=== PATIENT | female | born 1965 | race Caucasian/White ===

== ENCOUNTER 2016-10-04 17:50 | Emergency (ER) | payer MEDICARE ==
[~2016-10-04] VITALS: Ht 170.2 cm; Wt 131.5 kg
[~2016-10-04 17:50] MED LIST: ACET500T68 PO; AMLO2.5T PO; AMLO5TAB4 PO; ASEN10TA9 SL; ASPI-482 PO; Aspirin PO; BRINTELLIX; CIPR250T30 PO; CLON0.5T PO; CLON0.5T3 PO; CLOP75TA27 PO; CYCL10TA2 PO; DICY20TA30 PO; FENT1PAT15 TD; GABA600T PO; HYDR-2666 PO; HYDR-2680 PO; HYDR-2762 PO; HYDR-965 PO; HYDR-971 PO; ISOS30TA4 PO; LAMO200T3 PO; METO25TA2 PO; MONT10TA6 PO; OMEP20CA9 PO; OMEP40CA5 PO; ONDA4TAB10 SL; ROPI1TAB PO; SIMV10TA PO; SIMV40TA3 PO; VENL150C PO; ZOLP5TAB PO
[2016-10-04 18:05] VITALS: BP 143/75
--- NOTE | 2016-10-05 01:51 | ED.ADGEN ---
Past Medical History Past Medical History: Anemia, Anxiety, Bipolar, CAD, Depression, Fibromyalgia, GERD, Heart Disease, [place], Pancreatitis, Renal Failure, UTI, Other Additional Past Medical Histor: obesity, seasonal allergies, drug seeking behavior, neuropathy, ulcer Past Surgical History: Cholecystectomy, Hysterectomy, Tubal ligation, Other Additional Past Surgical Histo: L knee surgery, cardiac stent Alcohol Use: None Drug Use: None Adult General Chief Complaint Chief Complaint: HAND PROBLEM HPI HPI Patient is a 51 year old woman, history of CAD, hypertension, hyperlipidemia, obesity, anxiety, fibromyalgia, who presents to the emergency department with complaint of intermittent swelling of her right hand and wrist over the past 3 days. Patient states that she has noted swelling in the hand and wrist when waking from sleep over the past several days. She denies any injuries, denies any pain, any weakness numbness or tingling. Denies any change in activity, she is right-handed and is on disability due to her fiber myalgia. Patient has not taken any medications prior to coming to the ED. At this time the swelling is fully resolved. She states it was swollen several hours prior to coming to the ED. Patient also complained of chest pain upon initial arrival to the ED, stating that had occurred en route to the ED, but denies chest pain to me at this time. Review of Systems Review of Systems Constitutional: Denies fever or chills. [] Eyes: Denies change in visual acuity. [] HENT: Denies nasal congestion or sore throat. [] Respiratory: Denies cough or shortness of breath. [] Cardiovascular: Denies chest pain or edema. [] GI: Denies abdominal pain, nausea, vomiting, bloody stools or diarrhea. [] : Denies dysuria. [] Musculoskeletal: Denies back pain, complaining of pain in the right hand and wrist. Integument: Denies rash. [] Neurologic: Denies headache, focal weakness or sensory changes. [] Endocrine: Denies polyuria or polydipsia. [] Lymphatic: Denies swollen glands. [] Psychiatric: Denies depression or anxiety. [] Allergies Allergies Allergies Coded Allergies Type Severity Reaction Last Updated Verified clavulanic acid Allergy Intermediate Nausea 07/17/15 Yes duloxetine Allergy Intermediate Nausea and Vomiting 07/17/15 Yes varenicline Allergy Intermediate 07/17/15 Yes amoxicillin Adverse Reaction Intermediate Nausea 07/17/15 Yes Physical Exam Physical Exam Constitutional: Well developed, well nourished, no acute distress, non-toxic appearance. [] HENT: Normocephalic, atraumatic, bilateral external ears normal, oropharynx moist, no oral exudates, nose normal. [] Eyes: PERRLA, EOMI, conjunctiva normal, no discharge. [] Neck: Normal range of motion, no tenderness, supple, no stridor. [] Cardiovascular:Heart rate regular rhythm, no murmur, S1, S2, rubs or gallops. [] Lungs & Thorax: Bilateral breath sounds clear to auscultation, no wheezing, rhonchi, rales. No chest tenderness or crepitus. [] Abdomen: Bowel sounds normal, soft, no tenderness, no rebound, rigidity or guarding, no masses, no pulsatile masses. [] Skin: Warm, dry, no erythema, no rash. [] Back: No tenderness, no CVA tenderness. [] Extremities: No tenderness, no cyanosis, no clubbing, ROM intact, no edema. Negative Phalen's and Tinel's, patient with fine motor control in all cardinal hand motions intact. No evidence of swelling, trauma or other abnormalities identified and examination of the hands, hands are also equal bilaterally. Neurologic: Alert and oriented X 3, normal motor function, normal sensory function, no focal deficits noted. [] Psychologic: Affect normal, judgement normal, mood normal. [] Current Patient Data Vital Signs Vital Signs Date Time Temp Pulse Resp B/P Pulse Ox O2 Delivery O2 Flow Rate FiO2 10/04/16 18:05 98.3 72 20 143/75 96 Room Air 98.3 EKG EKG EC: Sinus rhythm, heart rate 93 beats minute, upright axis, QTC of 435, RI 188, QRS 96, no ST elevations or depressions, mild baseline artifact noted, no significant ST abnormalities identified. As interpreted by me. [] Radiology/Procedures Radiology/Procedures Not indicated. [] Course & Med Decision Making Course & Med Decision Making Pertinent Labs and Imaging studies reviewed. (See chart for details) Patient initially complaining of intermittent painless hand swelling, and additional complaint of chest pain, which she denied during my evaluation. Patient states swelling is currently resolved, but "I want to know what is causing the swelling". I did discuss with the patient that I do not identify any abnormalities at this time, and she agrees that her hand is normal this point, but states that it the symptoms have recurred several times now. I discussed with the patient that follow-up with her primary care provider for additional evaluation and potential referral to orthopedics or rheumatology may be warranted at that time, however based on the current examination and history I do not think that x-rays or other evaluation would be useful. After discussion , I did exit the room, with the plan of discharging the patient to follow-up with her primary care provider with proper return precautions, as again patient is denying any chest pain or other complaints in the ED. Patient informed the nurse at that point that she was not willing to wait for discharge paperwork, and signed out AGAINST MEDICAL ADVICE rather than wait to speak to me again or receive discharge papers. Dragon Disclaimer Dragon Disclaimer This electronic medical record was generated, in whole or in part, using a voice recognition dictation system. Departure Impression: Primary Impression: Swelling of right hand Disposition: AGAINST MEDICAL ADVICE Condition: STABLE REINA OTERO DO Oct 05, 2016 01:52
--- NOTE | 2016-10-05 06:20 | EKG ---
[facility] [address] [place] [address] Test Date: 2016-10-04 Test Time: 18:24:34 Pat Name: JN AGUILAR Department: Room: Gender: F [employer]eling [employer] Supervisor: : 1965 Requested By: REINA OTERO Order Number: [id number] Reading MD: Alma Venegas Measurements Intervals [place] Rate: 93 P: 74 [place]: 188 QRS: 19 QRSD: 96 T: 17 QT: 348 QTc: 435 Interpretive Statements SINUS RHYTHM NORMAL EKG RI6.01 Unconfirmed report Compared to ECG 06/06/2016 13:46:15 No significant changes Electronically Signed On 10-07-2016 18:16:24 [employer] by Alma Venegas
== END 2016-10-04 19:25 | disposition left against medical advice (07) ==
LOC: ER 17:50
DX: M79.89 Other specified soft tissue disorders (principal); I13.10 Hypertensive heart and chronic kidney disease without heart failure, with stage 1 through stage 4 chronic kidney disease, or unspecified chronic kidney disease; N18.9 Chronic kidney disease, unspecified; M79.7 Fibromyalgia; F31.9 Bipolar disorder, unspecified; I25.10 Atherosclerotic heart disease of native coronary artery without angina pectoris; Z76.5 Malingerer [conscious simulation]; I25.2 Old myocardial infarction; Z90.710 Acquired absence of both cervix and uterus; Z90.49 Acquired absence of other specified parts of digestive tract; Z98.51 Tubal ligation status; E66.9 Obesity, unspecified; Z68.42 Body mass index [BMI] 45.0-49.9, adult; Z95.5 Presence of coronary angioplasty implant and graft; Z87.440 Personal history of urinary (tract) infections; Z87.19 Personal history of other diseases of the digestive system; Z88.1 Allergy status to other antibiotic agents; Z88.8 Allergy status to other drugs, medicaments and biological substances
CPT/HCPCS: 93005; 99283-25

== ENCOUNTER 2017-04-19 15:37 | Emergency (ER) | payer BC, MEDICAID ==
[~2017-04-19] VITALS: Ht 170.2 cm; Wt 129.3 kg
[~2017-04-19 15:37] MED LIST changes: -CLOP75TA27 PO; +CLOP75TA57 PO; -HYDR-2666 PO; +HYDR-2758 PO
--- NOTE | 2017-04-19 15:49 | PHYS DOC ---
Past Medical History Past Medical History: Anemia, Anxiety, Bipolar, CAD, Depression, Fibromyalgia, GERD, Heart Disease, [place], Pancreatitis, Renal Failure, UTI, Other Additional Past Medical Histor: obesity, seasonal allergies, drug seeking behavior, neuropathy, ulcer Past Surgical History: Cholecystectomy, Hysterectomy, Tubal ligation, Other Additional Past Surgical Histo: L knee surgery, cardiac stent Alcohol Use: None Drug Use: None Adult General Chief Complaint Chief Complaint: BACK PAIN OR INJURY [facility] HPI Patient is a 52 year old female who presents with son onset of low back pain with radiation of the pain down the left leg after getting out of a chair. Patient has a long-standing history of bulging disc with sciatica with intermittent flareups. Her spine doctor prescribes her Ultram which is the pain medication she takes. She denies falling down or traumatizing her back. Review of Systems Review of Systems Constitutional: Denies fever or chills [] Eyes: Denies change in visual acuity, redness, or eye pain [] HENT: Denies nasal congestion or sore throat [] Respiratory: Denies cough or shortness of breath [] Cardiovascular: No additional information not addressed in HPI [] GI: Denies abdominal pain, nausea, vomiting, bloody stools or diarrhea [] : Denies dysuria or hematuria [] Musculoskeletal: Denies back pain or joint pain [] Integument: Denies rash or skin lesions [] Neurologic: Denies headache, focal weakness or sensory changes [] Endocrine: Denies polyuria or polydipsia [] Current Medications Current Medications Current Medications Medications (Trade) Dose Ordered Sig/[facility] Start Time Stop Time Status Last Admin Dose Admin Hydromorphone HCl (Dilaudid) 1 mg 1X ONCE 04/19/17 16:00 04/19/17 16:01 DC 04/19/17 15:58 1 MG Ondansetron HCl (Zofran Odt) 4 mg 1X ONCE 04/19/17 19:15 04/19/17 19:16 DC 04/19/17 19:13 4 MG Allergies Allergies Allergies Coded Allergies Type Severity Reaction Last Updated Verified Penicillins Allergy Intermediate HIVES 04/19/17 Yes clavulanic acid Allergy Intermediate Nausea 07/17/15 Yes duloxetine Allergy Intermediate Nausea and Vomiting 07/17/15 Yes varenicline Allergy Intermediate 07/17/15 Yes amoxicillin Adverse Reaction Intermediate Nausea 11/22/15 Yes Physical Exam Physical Exam Constitutional: Well developed, well nourished, no acute distress, non-toxic appearance. [] HENT: Normocephalic, atraumatic, bilateral external ears normal, oropharynx moist, no oral exudates, nose normal. [] Eyes: PERRLA, EOMI, conjunctiva normal, no discharge. [] Neck: Normal range of motion, no tenderness, supple, no stridor. [] Cardiovascular:Heart rate regular rhythm, no murmur [] Lungs & Thorax: Bilateral breath sounds clear to auscultation [] Abdomen: Bowel sounds normal, soft, no tenderness, no masses, no pulsatile masses. [] Skin: Warm, dry, no erythema, no rash. [] Back: No tenderness, no CVA tenderness. [] Extremities: No tenderness, no cyanosis, no clubbing, ROM intact, no edema. 5 out of 5 motor strength with extension of the knees ankle plantar and dorsiflexion, and dorsiflexion of great toes bilateral equal and able to do straight leg raise with left leg. 2+ patellar reflexes symmetric. No sensory deficits. [] Neurologic: Alert and oriented X 3, normal motor function, normal sensory function, no focal deficits noted. [] Psychologic: Affect normal, judgement normal, mood normal. [] Current Patient Data Vital Signs Vital Signs Date Time Temp Pulse Resp B/P (MAP) Pulse Ox O2 Delivery O2 Flow Rate FiO2 04/19/17 19:16 77 18 140/71 (94) 91 Room Air 04/19/17 17:49 2.0 04/19/17 15:40 97.9 97.9 EKG EKG [] Radiology/Procedures Radiology/Procedures [] Course & Med Decision Making Course & Med Decision Making Pertinent Labs and Imaging studies reviewed. (See chart for details) Neurologically intact, no indication for emergent imaging; we'll treat symptomatically. 1830 p.m. patient improved with her pain control, is ambulatory and not hypoxic. [] Dragon Disclaimer Dragon Disclaimer This electronic medical record was generated, in whole or in part, using a voice recognition dictation system. Departure Departure Impression: Primary Impression: Left lumbar radiculopathy Additional Impression: Acute low back pain Disposition: HOME, SELF-CARE Condition: IMPROVED Referrals: NELLIE DIAZ (PCP) Patient Instructions: Lumbar Puncture and Cerebrospinal Fluid Exam Additional Instructions: Ice or heat, rest, return if unable to move legs/ numbness in the groin area/or unable to go to the bathroom. Problem Qualifiers NIKKI GALLEGO MD Apr 19, 2017 15:49
[2017-04-19] MEDS ORDERED: ONDANSETRON ODT 4 MG TAB.RAPDIS. PO ONE ×2 (16:00→19:15)
[2017-04-19] MEDS ORDERED: HYDROmorphone 2 MG/ML VIAL IM ONE (16:00)
[2017-04-19 19:16] VITALS: BP 140/71
== END 2017-04-19 19:25 | disposition home or self-care (01) ==
LOC: ER 15:37
DX: M54.16 Radiculopathy, lumbar region (principal); K21.9 Gastro-esophageal reflux disease without esophagitis; I25.10 Atherosclerotic heart disease of native coronary artery without angina pectoris; M79.7 Fibromyalgia; F31.9 Bipolar disorder, unspecified; Z76.5 Malingerer [conscious simulation]; Z90.49 Acquired absence of other specified parts of digestive tract; Z95.5 Presence of coronary angioplasty implant and graft; Z90.710 Acquired absence of both cervix and uterus; Z98.51 Tubal ligation status; Z87.440 Personal history of urinary (tract) infections; Z88.0 Allergy status to penicillin; Z88.1 Allergy status to other antibiotic agents; Z88.8 Allergy status to other drugs, medicaments and biological substances
CPT/HCPCS: 96372; 99283; J1170; Q0162

== ENCOUNTER 2017-07-16 17:01 | Emergency (ER) | payer BC, OTHER ==
[~2017-07-16] VITALS: Ht 170.2 cm; Wt 129.3 kg
[2017-07-16] MEDS ORDERED: IV NORMAL SALINE 500ML BAG 500 ML IV ONE (17:30)
[2017-07-16] MEDS ORDERED: FAMOTIDINE 20 MG/2 ML VIAL IVP ONE (17:30)
[2017-07-16] MEDS ORDERED: LIDO:MAALOX:DONNATAL 1:1:1 15 ML SINGLE DOSE SWSW ONE (17:30)
--- NOTE | 2017-07-16 17:30 | PHYS DOC ---
Past Medical History Past Medical History: Anemia, Anxiety, Bipolar, CAD, Depression, Fibromyalgia, GERD, Heart Disease, [place], Pancreatitis, Renal Failure, Sciatica, UTI, Other Additional Past Medical Histor: obesity, seasonal allergies, drug seeking behavior, neuropathy, ulcer Past Surgical History: Cholecystectomy, Hysterectomy, Tubal ligation, Other Additional Past Surgical Histo: L knee surgery, cardiac stent Alcohol Use: None Drug Use: None Adult General Chief Complaint Chief Complaint: ABDOMINAL PAIN HPI HPI 52-year-old female presenting to the emergency department today with epigastric abdominal pain and a burning sensation in her throat. She reports mild pain when she swallows. She denies having any food bolus stuck in her esophagus. He reports a history of esophageal dilation and history of stomach ulcers. She also reports a history of a heart attack. She denies having chronic hypertension that was hypertensive here. She denies a history of diabetes high cholesterol. She denies unilateral leg swelling hemoptysis personal or family history of blood clotting disorders. She denies recent immobilization or surgery. She describes a burning sensation that goes down her throat and her belly. The patient denies difficulty speaking slurred speech facial asymmetry weakness in her extremities. She denies any difficulty walking. Denies vision changes. Review of systems is negative for fevers chills vomiting. She denies diarrhea or blood in her stools. All other review of systems is negative unless otherwise noted in history of present illness. ED course: 52-year-old female presenting to the emergency department today with generalized burning in her throat and pain with swallowing. Pt is hypertensive upon arrival. afebrile. hr is nl. pertinent exam shows that her abdomen is soft and nontender to palpation. Lungs are clear to auscultation bilaterally. Patient is swallowing her secretions without difficulty. No evidence of an impacted food bolus. Blood work obtained along with EKG. Chest x-ray obtained. Chest x-ray reviewed by myself shows no obvious infiltrate or pneumothorax present. No obvious acute cardiopulmonary process present. Blood work unremarkable including a negative troponin. Patient's sensation is been present for more than 24 hours so one troponin is likely sufficient. Patient was given antacid medication and GI cocktail with mild relief. On reexamination she is feeling better. I initially had ordered a swallow study however unfortunately because the radiologist is not longer here were unable to get the study. This patient's study can be obtained in the outpatient setting. Heart score 3. The patient was then discharged home in stable condition to follow up with their primary care physician over the next 2-3 days. They were to return if their symptoms worsened or if they were concerned for any reason. [id number] discharge instructions and return precautions were given. Patient's questions were answered to their satisfaction. Patient is comfortable plan. Review of Systems Review of Systems SEE ABOVE. Current Medications Current Medications Current Medications Medications (Trade) Dose Ordered Sig/[facility] Start Time Stop Time Status Last Admin Dose Admin Famotidine (Pepcid Vial) 20 mg 1X ONCE 07/16/17 17:30 07/16/17 17:31 DC 07/16/17 17:37 20 MG Multi-Ingredient Mouthwash/Gargle (Gi Cocktail Single Dose) 15 ml 1X ONCE 07/16/17 17:30 07/16/17 17:31 DC 07/16/17 17:36 15 ML Sodium Chloride 500 ml @ 500 mls/hr 1X ONCE 07/16/17 17:30 07/16/17 18:29 DC 07/16/17 17:37 500 MLS/HR Allergies Allergies Allergies Coded Allergies Type Severity Reaction Last Updated Verified Penicillins Allergy Intermediate HIVES 04/19/17 Yes clavulanic acid Allergy Intermediate Nausea 07/17/15 Yes duloxetine Allergy Intermediate Nausea and Vomiting 07/17/15 Yes varenicline Allergy Intermediate 07/17/15 Yes amoxicillin Adverse Reaction Intermediate Nausea 07/17/15 Yes Physical Exam Physical Exam SEE ABOVE Constitutional: Well developed, well nourished, no acute distress, non-toxic appearance. HENT: Normocephalic, atraumatic, bilateral external ears normal, oropharynx moist, no oral exudates, nose normal. [] Eyes: PERRLA, EOMI, conjunctiva normal, no discharge. [] Neck: Normal range of motion, no tenderness, supple, no stridor. Cardiovascular:Heart rate regular rhythm, no murmur [] Lungs & Thorax: Bilateral breath sounds clear to auscultation [] Abdomen: Soft nontender abdomen without rebound tenderness or guarding present. Negative McBurneys point. Negative Mares sign. No ecchymosis present. Skin: Warm, dry, no erythema, no rash. [] Back: No tenderness, no CVA tenderness. Extremities: No tenderness, no cyanosis, no clubbing, ROM intact, no edema. [] Neurologic: Alert and oriented X 3, normal motor function, normal sensory function, no focal deficits noted. Psychologic: Affect normal, judgement normal, mood normal. [] Current Patient Data Vital Signs Vital Signs Date Time Temp Pulse Resp B/P (MAP) Pulse Ox O2 Delivery O2 Flow Rate FiO2 07/16/17 18:41 79 19 167/92 (117) 93 Room Air 07/16/17 17:21 98.2 98.2 Lab Values Laboratory Tests Test 07/16/17 17:35 White Blood Count 6.6 x10^3/uL (4.0-11.0) Red Blood Count 4.59 x10^6/uL (3.50-5.40) Hemoglobin 13.7 g/dL (12.0-15.5) Hematocrit 41.5 % (36.0-47.0) Mean Corpuscular Volume 90 fL (79-100) Mean Corpuscular Hemoglobin 30 pg (25-35) Mean Corpuscular Hemoglobin Concent 33 g/dL (31-37) Red Cell Distribution Width 14.5 % (11.5-14.5) Platelet Count 317 x10^3/uL (140-400) Neutrophils (%) (Auto) 57 % (31-73) Lymphocytes (%) (Auto) 28 % (24-48) Monocytes (%) (Auto) 8 % (0-9) Eosinophils (%) (Auto) 6 % (0-3) H Basophils (%) (Auto) 1 % (0-3) Neutrophils # (Auto) 3.8 x10^3uL (1.8-7.7) Lymphocytes # (Auto) 1.9 x10^3/uL (1.0-4.8) Monocytes # (Auto) 0.5 x10^3/uL (0.0-1.1) Eosinophils # (Auto) 0.4 x10^3/uL (0.0-0.7) Basophils # (Auto) 0.1 x10^3/uL (0.0-0.2) Sodium Level 135 mmol/L (136-145) L Potassium Level 4.1 mmol/L (3.5-5.1) Chloride Level 97 mmol/L (98-107) L Carbon Dioxide Level 30 mmol/L (21-32) Anion Gap 8 (6-14) Blood Urea Nitrogen 18 mg/dL (7-20) Creatinine 1.5 mg/dL (0.6-1.0) H Estimated GFR (Cockcroft-Gault) 36.6 Glucose Level 129 mg/dL (70-99) H Calcium Level 9.0 mg/dL (8.5-10.1) Total Bilirubin 0.2 mg/dL (0.2-1.0) Direct Bilirubin < 0.1 mg/dL (0.0-0.2) Aspartate Amino Transferase (AST) 21 U/L (15-37) Alanine Aminotransferase (ALT) 22 U/L (14-59) Alkaline Phosphatase 131 U/L (46-116) H Troponin I Quantitative < 0.017 ng/mL (0.000-0.055) Total Protein 6.7 g/dL (6.4-8.2) Albumin 3.6 g/dL (3.4-5.0) Lipase 81 U/L (73-393) Laboratory Tests 07/16/17 17:35 Laboratory Tests 07/16/17 17:35 EKG EKG [] Radiology/Procedures Radiology/Procedures [] Course & Med Decision Making Course & Med Decision Making Pertinent Labs and Imaging studies reviewed. (See chart for details) [] Dragon Disclaimer Dragon Disclaimer This electronic medical record was generated, in whole or in part, using a voice recognition dictation system. Departure Departure Impression: Primary Impression: Abdominal pain Disposition: HOME, SELF-CARE Condition: STABLE Referrals: NELLIE DIAZ (PCP) Patient Instructions: Abdominal Pain (Nonspecific) Additional Instructions: Thank you for allowing us to participate in your care today. Followup with your primary care physician in 3 days if your symptoms do not improve. Call your Primary Doctor tomorrow and inform them of your visit today. If you do not have a primary care provider you can ask for a list of our primary care providers. Return to the emergency department you have any new or concerning findings. This should be evaluated by the primary care physician and any necessary consulting services for continued management within a few days after discharge. Return to emergency room if you have any new or concerning symptoms including but not limited to fever, chills, nausea, vomiting, intractable pain, any new rashes, chest pain, shortness of air, uncontrolled bleeding, difficulty breathing, and/or vision loss. You may have been prescribed medication that can change in your level of thinking and ability to operate machinery. These medications include hydrocodone and Ativan. Also, Benadryl has been known to do this as well. Be sure to check with your pharmacist and ask if the medications you've prescribed can affect your level of consciousness. I recommend not operating heavy machinery or driving while on medication such as these. SHAUNA ORTIZ MD Jul 16, 2017 17:30
--- NOTE | 2017-07-16 17:38 | EKG ---
[facility] [address] [place] [address] Test Date: 2017-07-16 Test Time: 17:23:40 Pat Name: JN AGUILAR Department: Room: Gender: F Spanish Lecturer: ANGIE : 1965 Requested By: SHAUNA ORTIZ Order Number: [id number] Reading MD: Measurements Intervals [place] Rate: 90 P: 38 MA: 166 QRS: 19 QRSD: 102 T: 24 QT: 378 QTc: 467 Interpretive Statements SINUS RHYTHM LEFT ATRIAL ABNORMALITY ABNORMAL ECG RI6.01 No previous ECG available for comparison
[2017-07-16 17:46] LABS: BASO # 0.1 x10^3/uL (0.0-0.2); BASO % 1 % (0-3); EOS % 6 % (0-3); HEMATOCRIT 41.5 % (36.0-47.0); HEMOGLOBIN 13.7 g/dL (12.0-15.5); LYMPH # 1.9 x10^3/uL (1.0-4.8); LYMPH % 28 % (24-48); MEAN CORPUSCULAR HEMOGLOBIN 30 pg (25-35); MEAN CORPUSCULAR HGB CONC 33 g/dL (31-37); MEAN CORPUSCULAR VOLUME 90 fL (79-100); MONO % 8 % (0-9); NEUT % 57 % (31-73); PLATELET COUNT 317 x10^3/uL (140-400); RED BLOOD COUNT 4.59 x10^6/uL (3.50-5.40); RED CELL DISTRIBUTION WIDTH 14.5 % (11.5-14.5); WHITE BLOOD COUNT 6.6 x10^3/uL (4.0-11.0)
[2017-07-16 17:58] LABS: ANION GAP 8 (6-14); BLOOD UREA NITROGEN 18 mg/dL (7-20); CARBON DIOXIDE 30 mmol/L (21-32); CHLORIDE 97 mmol/L (98-107); CREATININE 1.5 mg/dL (0.6-1.0); GFR 36.6; GLUCOSE 129 mg/dL (70-99); POTASSIUM 4.1 mmol/L (3.5-5.1); SODIUM 135 mmol/L (136-145)
[2017-07-16 18:04] LABS: ALBUMIN 3.6 g/dL (3.4-5.0); ALK PHOS 131 U/L (46-116); ALT (SGPT) 22 U/L (14-59); AST (SGOT) 21 U/L (15-37); DIRECT BILIRUBIN < 0.1 mg/dL (0.0-0.2); TOTAL BILIRUBIN 0.2 mg/dL (0.2-1.0); TOTAL PROTEIN 6.7 g/dL (6.4-8.2)
[2017-07-16 19:11] VITALS: BP 173/97
--- NOTE | 2017-07-17 08:04 | RAD ---
EXAM: Chest one view. HISTORY: Chest pain. COMPARISON: 08/14/2015. FINDINGS: A frontal view of the chest is obtained. There are no confluent infiltrates. There is no pneumothorax or pleural effusion. The heart is not enlarged. IMPRESSION: 1. No confluent infiltrates.
== END 2017-07-16 19:37 | disposition home or self-care (01) ==
LOC: ER 17:01
DX: R10.13 Epigastric pain (principal); R13.10 Dysphagia, unspecified; F41.9 Anxiety disorder, unspecified; F31.9 Bipolar disorder, unspecified; I25.10 Atherosclerotic heart disease of native coronary artery without angina pectoris; M79.7 Fibromyalgia; K21.9 Gastro-esophageal reflux disease without esophagitis; I51.9 Heart disease, unspecified; I25.2 Old myocardial infarction; N18.9 Chronic kidney disease, unspecified; G62.9 Polyneuropathy, unspecified; E66.9 Obesity, unspecified; Z87.440 Personal history of urinary (tract) infections; Z68.41 Body mass index [BMI] 40.0-44.9, adult; Z95.5 Presence of coronary angioplasty implant and graft; Z88.0 Allergy status to penicillin; Z90.49 Acquired absence of other specified parts of digestive tract; Z90.710 Acquired absence of both cervix and uterus; Z87.19 Personal history of other diseases of the digestive system; Z88.1 Allergy status to other antibiotic agents; Z88.8 Allergy status to other drugs, medicaments and biological substances
CPT/HCPCS: 36415; 71010; 80048; 80076; 83690; 84484; 85025; 93005; 96361; 96374; 99285; J7040; S0028

== ENCOUNTER 2017-09-26 21:18 | Emergency (ER) | payer BC, OTHER ==
[2017-09-26 22:16] LABS: ADD MAN DIFF? NO
[2017-09-26 22:18] LABS: BASO # 0.1 x10^3/uL (0.0-0.2); BASO % 1 % (0-3); EOS # 0.4 x10^3/uL (0.0-0.7); EOS % 4 % (0-3); HEMATOCRIT 42.4 % (36.0-47.0); HEMOGLOBIN 14.4 g/dL (12.0-15.5); LYMPH # 2.2 x10^3/uL (1.0-4.8); LYMPH % 23 % (24-48); MEAN CORPUSCULAR HEMOGLOBIN 31 pg (25-35); MEAN CORPUSCULAR HGB CONC 34 g/dL (31-37); MEAN CORPUSCULAR VOLUME 91 fL (79-100); MONO # 0.7 x10^3/uL (0.0-1.1); MONO % 8 % (0-9); NEUT # 6.4 x10^3uL (1.8-7.7); NEUT % 65 % (31-73); PLATELET COUNT 348 x10^3/uL (140-400); RED BLOOD COUNT 4.69 x10^6/uL (3.50-5.40); RED CELL DISTRIBUTION WIDTH 14.6 % (11.5-14.5); WHITE BLOOD COUNT 9.9 x10^3/uL (4.0-11.0)
[2017-09-26 22:25] LABS: ANION GAP 6 (6-14); BLOOD UREA NITROGEN 25 mg/dL (7-20); BUN/CREATININE RATIO 16 (6-20); CALCIUM 9.4 mg/dL (8.5-10.1); CARBON DIOXIDE 29 mmol/L (21-32); CHLORIDE 98 mmol/L (98-107); CREATININE 1.6 mg/dL (0.6-1.0); GLUCOSE 103 mg/dL (70-99); SODIUM 133 mmol/L (136-145)
[2017-09-26] MEDS: MORPHINE SULFATE 2 MG/ML DISP.SYRIN. IV ×2 (22:25)
[2017-09-26 22:31] LABS: ALBUMIN 3.6 g/dL (3.4-5.0); ALBUMIN/GLOBULIN RATIO 0.9 (1.0-1.7); ALK PHOS 148 U/L (46-116); ALT (SGPT) 15 U/L (14-59); AST (SGOT) 16 U/L (15-37); TOTAL BILIRUBIN 0.2 mg/dL (0.2-1.0); TOTAL PROTEIN 7.7 g/dL (6.4-8.2)
== END 2017-09-26 23:41 | disposition home or self-care (01) ==
LOC: ER 21:18
DX: R10.9 Unspecified abdominal pain (principal); I10 Essential (primary) hypertension; K21.9 Gastro-esophageal reflux disease without esophagitis; I50.9 Heart failure, unspecified; I13.0 Hypertensive heart and chronic kidney disease with heart failure and stage 1 through stage 4 chronic kidney disease, or unspecified chronic kidney disease; N18.9 Chronic kidney disease, unspecified; I25.10 Atherosclerotic heart disease of native coronary artery without angina pectoris; E66.9 Obesity, unspecified; M79.7 Fibromyalgia; I25.2 Old myocardial infarction; M54.30 Sciatica, unspecified side; G62.9 Polyneuropathy, unspecified; Z90.49 Acquired absence of other specified parts of digestive tract; Z98.51 Tubal ligation status; Z90.710 Acquired absence of both cervix and uterus; Z95.5 Presence of coronary angioplasty implant and graft; Z88.0 Allergy status to penicillin; Z88.1 Allergy status to other antibiotic agents; Z88.8 Allergy status to other drugs, medicaments and biological substances; Z68.41 Body mass index [BMI] 40.0-44.9, adult
CPT/HCPCS: 36415; 74176; 80053; 85025; 96374; 99285-25; J2270

== ENCOUNTER 2017-10-04 20:58 | Inpatient (IN) | payer BC, OTHER ==
[2017-10-04 21:37] LABS: ADD MAN DIFF? NO
[2017-10-04 21:40] LABS: BASO # 0.1 x10^3/uL (0.0-0.2); BASO % 1 % (0-3); EOS # 0.5 x10^3/uL (0.0-0.7); EOS % 5 % (0-3); HEMATOCRIT 43.5 % (36.0-47.0); HEMOGLOBIN 14.4 g/dL (12.0-15.5); LYMPH # 2.2 x10^3/uL (1.0-4.8); LYMPH % 25 % (24-48); MEAN CORPUSCULAR HEMOGLOBIN 30 pg (25-35); MEAN CORPUSCULAR HGB CONC 33 g/dL (31-37); MEAN CORPUSCULAR VOLUME 91 fL (79-100); MONO # 0.7 x10^3/uL (0.0-1.1); MONO % 8 % (0-9); NEUT # 5.2 x10^3uL (1.8-7.7); NEUT % 60 % (31-73); PLATELET COUNT 360 x10^3/uL (140-400); RED BLOOD COUNT 4.76 x10^6/uL (3.50-5.40); RED CELL DISTRIBUTION WIDTH 14.9 % (11.5-14.5); WHITE BLOOD COUNT 8.6 x10^3/uL (4.0-11.0)
[2017-10-04] MEDS: LIDO:MAALOX:DONNATAL 1:1:1 15 ML SINGLE DOSE SWSW (21:48)
[2017-10-04] MEDS: PANTOPRAZOLE IV PUSH 40 MG VIAL. IVP (21:48)
[2017-10-04] MEDS: fentaNYL PF VIAL 100 MCG/2 ML VIAL IV (21:50)
[2017-10-04 21:51] LABS: ANION GAP 12 (6-14); BLOOD UREA NITROGEN 36 mg/dL (7-20); BUN/CREATININE RATIO 23 (6-20); CARBON DIOXIDE 26 mmol/L (21-32); CHLORIDE 102 mmol/L (98-107); CREATININE 1.6 mg/dL (0.6-1.0); GLUCOSE 112 mg/dL (70-99); SODIUM 140 mmol/L (136-145)
[2017-10-04] MEDS: ONDANSETRON PF 4 MG/2 ML VIAL. IV (21:52)
[2017-10-04 21:56] LABS: ALBUMIN 3.1 g/dL (3.4-5.0); ALBUMIN/GLOBULIN RATIO 0.7 (1.0-1.7); ALK PHOS 193 U/L (46-116); ALT (SGPT) 16 U/L (14-59); AST (SGOT) 24 U/L (15-37); LIPASE 354 U/L (73-393); TOTAL BILIRUBIN 0.2 mg/dL (0.2-1.0); TOTAL PROTEIN 7.3 g/dL (6.4-8.2)
[2017-10-04 21:58] LABS: TROPONINI < 0.017 ng/mL (0.000-0.055)
[2017-10-04 22:02] LABS: NT-PRO BNP 323 pg/mL (0-124)
[2017-10-04 22:44] LABS: BILIRUBIN,URINE NEGATIVE (NEG); CLARITY,URINE CLEAR; COLOR,URINE YELLOW; GLUCOSE,URINE NEGATIVE (NEG); NITRITE,URINE NEGATIVE (NEG); PH,URINE 5.5; PROTEIN,URINE 30 mg/dL (NEG-TRACE); UROBILINOGEN,URINE 0.2 mg/dL (0.2 mg/dL)
[2017-10-04 23:06] LABS: BACTERIA,URINE FEW /HPF (0-FEW); HYALINE CASTS, URINE FEW /HPF; RBC,URINE OCC /HPF (0-2); SQUAMOUS EPITHELIAL CELL,UR MOD /LPF; WBC,URINE OCC /HPF (0-4)
[2017-10-04] MEDS ORDERED: ONDANSETRON PF 4 MG/2 ML VIAL. IV (23:30)
[2017-10-04] MEDS: MORPHINE SULFATE 10 MG/ML VIAL. IV (23:37)
[2017-10-05] MEDS: traMADol 50 MG TABLET PO (02:33)
[2017-10-05] MEDS: fentaNYL PF VIAL 100 MCG/2 ML VIAL IV ×2 (02:34→09:43)
[2017-10-05 03:41] LABS: TROPONINI < 0.017 ng/mL (0.000-0.055)
[2017-10-05 05:03] LABS: ADD MAN DIFF? NO
[2017-10-05 05:23] LABS: BASO # 0.1 x10^3/uL (0.0-0.2); BASO % 1 % (0-3); EOS # 0.4 x10^3/uL (0.0-0.7); EOS % 5 % (0-3); HEMATOCRIT 42.6 % (36.0-47.0); HEMOGLOBIN 13.8 g/dL (12.0-15.5); LYMPH # 2.4 x10^3/uL (1.0-4.8); LYMPH % 27 % (24-48); MEAN CORPUSCULAR HEMOGLOBIN 30 pg (25-35); MEAN CORPUSCULAR HGB CONC 33 g/dL (31-37); MEAN CORPUSCULAR VOLUME 92 fL (79-100); MONO # 0.7 x10^3/uL (0.0-1.1); MONO % 8 % (0-9); NEUT # 5.2 x10^3uL (1.8-7.7); NEUT % 60 % (31-73); PLATELET COUNT 299 x10^3/uL (140-400); RED BLOOD COUNT 4.61 x10^6/uL (3.50-5.40); RED CELL DISTRIBUTION WIDTH 14.9 % (11.5-14.5); WHITE BLOOD COUNT 8.8 x10^3/uL (4.0-11.0)
[2017-10-05 06:17] LABS: ANION GAP 9 (6-14); BLOOD UREA NITROGEN 37 mg/dL (7-20); CALCIUM 8.9 mg/dL (8.5-10.1); CARBON DIOXIDE 27 mmol/L (21-32); CHLORIDE 103 mmol/L (98-107); CREATININE 1.5 mg/dL (0.6-1.0); GFR 36.6; GLUCOSE 93 mg/dL (70-99); POTASSIUM 4.7 mmol/L (3.5-5.1); SODIUM 139 mmol/L (136-145)
[2017-10-05 06:32] LABS: TROPONINI < 0.017 ng/mL (0.000-0.055)
[2017-10-05] MEDS ORDERED: traMADol 50 MG TABLET PO (09:00)
[2017-10-05] MEDS ORDERED: ALBUTEROL SULFATE 2.5 MG/3 ML NEBU. NEB (09:30)
[2017-10-05] MEDS: clonazePAM 0.5 MG TABLET PO ×3 (09:42→20:33)
[2017-10-05] MEDS: IV 1/2 NORMAL SALINE 1,000 ML IV (09:42)
[2017-10-05] MEDS: ASPIRIN ENTERIC COATED 81 MG TABLET.DR. PO (09:42)
[2017-10-05] MEDS: GABAPENTIN 300 MG CAPSULE. PO ×3 (09:43→20:33)
[2017-10-05] MEDS: FLUoxetine HCL 20 MG CAPSULE PO (09:44)
[2017-10-05] MEDS: PANTOPRAZOLE 40 MG TABLET.DR. PO (09:44)
[2017-10-05] MEDS: CARVEDILOL 3.125 MG TABLET. PO (09:44)
[2017-10-05] MEDS: LIDO:MAALOX:DONNATAL 1:1:1 15 ML SINGLE DOSE SWSW (09:44)
[2017-10-05] MEDS: ACETAMINOPHEN 500 MG TABLET PO ×2 (12:00→17:17)
[2017-10-05] MEDS: LABETALOL 20 MG/4 ML DISP.SYRIN. IVP ×2 (12:22→14:18)
[2017-10-05] MEDS ORDERED: LIDO:MAALOX:DONNATAL 1:1:1 15 ML SINGLE DOSE SWSW (13:15)
[2017-10-05] MEDS: MORPHINE SULFATE 4 MG/ML DISP.SYRIN. IV (14:35)
[2017-10-05] MEDS: SUCRALFATE 1 GM TABLET. PO ×2 (17:17→20:33)
[2017-10-05] MEDS: CARVEDILOL 6.25 MG TABLET. PO (17:17)
[2017-10-05] MEDS: DOCUSATE SODIUM 100 MG CAPSULE. PO (17:29)
[2017-10-05] MEDS: DOXEPIN HCL 25 MG CAPSULE. PO (20:33)
[2017-10-05] MEDS ORDERED: ACETAMINOPHEN 500 MG TABLET PO (21:10)
[2017-10-05] MEDS: hydrALAZINE 20 MG/ML VIAL. IVP (22:46)
[2017-10-06 05:53] LABS: ANION GAP 7 (6-14); BLOOD UREA NITROGEN 16 mg/dL (7-20); CALCIUM 9.8 mg/dL (8.5-10.1); CARBON DIOXIDE 31 mmol/L (21-32); CHLORIDE 97 mmol/L (98-107); CREATININE 1.1 mg/dL (0.6-1.0); GFR 52.4; GLUCOSE 129 mg/dL (70-99); SODIUM 135 mmol/L (136-145)
[2017-10-06 06:10] LABS: ALK PHOS 212 U/L (46-116); ALT (SGPT) 45 U/L (14-59); AST (SGOT) 47 U/L (15-37); DIRECT BILIRUBIN 0.1 mg/dL (0.0-0.2); LIPASE 1422 U/L (73-393); TOTAL BILIRUBIN 0.3 mg/dL (0.2-1.0); TOTAL PROTEIN 6.5 g/dL (6.4-8.2)
[2017-10-06] MEDS: CARVEDILOL 6.25 MG TABLET. PO ×2 (08:00→16:50)
[2017-10-06] MEDS: MORPHINE SULFATE 4 MG/ML DISP.SYRIN. IV ×3 (08:01→22:27)
[2017-10-06] MEDS: PANTOPRAZOLE 40 MG TABLET.DR. PO (08:01)
[2017-10-06] MEDS: GABAPENTIN 300 MG CAPSULE. PO ×3 (08:01→20:42)
[2017-10-06] MEDS: SUCRALFATE 1 GM TABLET. PO ×4 (08:01→20:42)
[2017-10-06] MEDS: FLUoxetine HCL 20 MG CAPSULE PO (08:01)
[2017-10-06] MEDS: DOCUSATE SODIUM 100 MG CAPSULE. PO (08:01)
[2017-10-06] MEDS: ASPIRIN ENTERIC COATED 81 MG TABLET.DR. PO (08:01)
[2017-10-06] MEDS: clonazePAM 0.5 MG TABLET PO ×3 (08:01→20:42)
[2017-10-06] MEDS: hydrALAZINE 20 MG/ML VIAL. IVP (13:28)
[2017-10-06] MEDS: ASA/APAP/CAFFEINE 250/250/65MG TABLET. PO (17:09)
[2017-10-06] MEDS: oxyCODONE/APAP 5/325 1 TAB TABLET PO (19:17)
[2017-10-06] MEDS: DOXEPIN HCL 25 MG CAPSULE. PO (20:42)
[2017-10-07] MEDS: hydrALAZINE 20 MG/ML VIAL. IVP (02:56)
[2017-10-07] MEDS: oxyCODONE/APAP 5/325 1 TAB TABLET PO ×2 (02:59→07:38)
[2017-10-07 05:09] LABS: ADD MAN DIFF? NO
[2017-10-07 05:22] LABS: BASO # 0.1 x10^3/uL (0.0-0.2); BASO % 1 % (0-3); EOS # 0.3 x10^3/uL (0.0-0.7); EOS % 2 % (0-3); HEMATOCRIT 42.4 % (36.0-47.0); LYMPH # 1.5 x10^3/uL (1.0-4.8); LYMPH % 14 % (24-48); MEAN CORPUSCULAR HEMOGLOBIN 30 pg (25-35); MEAN CORPUSCULAR HGB CONC 33 g/dL (31-37); MEAN CORPUSCULAR VOLUME 91 fL (79-100); MONO % 9 % (0-9); NEUT # 8.1 x10^3uL (1.8-7.7); NEUT % 74 % (31-73); PLATELET COUNT 296 x10^3/uL (140-400); RED BLOOD COUNT 4.66 x10^6/uL (3.50-5.40); RED CELL DISTRIBUTION WIDTH 14.6 % (11.5-14.5); WHITE BLOOD COUNT 10.9 x10^3/uL (4.0-11.0)
[2017-10-07 05:39] LABS: ANION GAP 6 (6-14); BLOOD UREA NITROGEN 14 mg/dL (7-20); CALCIUM 9.8 mg/dL (8.5-10.1); CARBON DIOXIDE 34 mmol/L (21-32); CHLORIDE 99 mmol/L (98-107); CREATININE 1.2 mg/dL (0.6-1.0); GFR 47.4; GLUCOSE 108 mg/dL (70-99); LIPASE 422 U/L (73-393); POTASSIUM 4.1 mmol/L (3.5-5.1); SODIUM 139 mmol/L (136-145)
[2017-10-07] MEDS: PANTOPRAZOLE 40 MG TABLET.DR. PO (07:38)
[2017-10-07] MEDS: SUCRALFATE 1 GM TABLET. PO ×5 (07:38→20:31)
[2017-10-07] MEDS: DOCUSATE SODIUM 100 MG CAPSULE. PO (08:17)
[2017-10-07] MEDS: FLUoxetine HCL 20 MG CAPSULE PO (08:18)
[2017-10-07] MEDS: ASPIRIN ENTERIC COATED 81 MG TABLET.DR. PO (08:18)
[2017-10-07] MEDS: clonazePAM 0.5 MG TABLET PO ×3 (08:18→20:31)
[2017-10-07] MEDS: CARVEDILOL 6.25 MG TABLET. PO ×2 (08:18→17:14)
[2017-10-07] MEDS: GABAPENTIN 300 MG CAPSULE. PO ×3 (08:18→20:31)
[2017-10-07] MEDS: ONDANSETRON ODT 4 MG TAB.RAPDIS. PO (08:23)
[2017-10-07] MEDS: MORPHINE SULFATE 4 MG/ML DISP.SYRIN. IV (10:09)
[2017-10-07] MEDS: amLODIPine BESYLATE 10 MG TABLET PO (10:10)
[2017-10-07] MEDS: IV NORMAL SALINE 1000ML BAG 1,000 ML IV (11:48)
[2017-10-07] MEDS: ASA/APAP/CAFFEINE 250/250/65MG TABLET. PO ×2 (12:43→20:31)
[2017-10-07] MEDS: oxyCODONE/APAP 10/325 1 TAB TABLET PO ×2 (14:38→22:54)
[2017-10-07 16:49] LABS: CHOLESTEROL 169 mg/dL (0-200); HDLC 77 mg/dL (40-60); LDLC 78 mg/dL (0-100); NON-HDL CHOLESTEROL 92 mg/dL (0-129); TRIGLYCERIDES 68 mg/dL (0-150); VLDLC 14 mg/dL (0-40)
[2017-10-07 16:50] LABS: CHOLESTEROL/HDL RATIO 2.2
[2017-10-07] MEDS: DOXEPIN HCL 25 MG CAPSULE. PO (20:30)
[2017-10-08 04:22] LABS: ADD MAN DIFF? NO
[2017-10-08 04:36] LABS: BASO % 1 % (0-3); EOS # 0.5 x10^3/uL (0.0-0.7); EOS % 5 % (0-3); HEMATOCRIT 39.7 % (36.0-47.0); HEMOGLOBIN 12.9 g/dL (12.0-15.5); LYMPH # 1.9 x10^3/uL (1.0-4.8); LYMPH % 19 % (24-48); MEAN CORPUSCULAR HEMOGLOBIN 30 pg (25-35); MEAN CORPUSCULAR HGB CONC 33 g/dL (31-37); MEAN CORPUSCULAR VOLUME 92 fL (79-100); MONO # 0.9 x10^3/uL (0.0-1.1); MONO % 9 % (0-9); NEUT # 6.6 x10^3uL (1.8-7.7); NEUT % 67 % (31-73); PLATELET COUNT 285 x10^3/uL (140-400); RED CELL DISTRIBUTION WIDTH 14.9 % (11.5-14.5); WHITE BLOOD COUNT 9.9 x10^3/uL (4.0-11.0)
[2017-10-08 04:49] LABS: ANION GAP 4 (6-14); BLOOD UREA NITROGEN 16 mg/dL (7-20); CALCIUM 8.9 mg/dL (8.5-10.1); CARBON DIOXIDE 35 mmol/L (21-32); CHLORIDE 103 mmol/L (98-107); CREATININE 1.4 mg/dL (0.6-1.0); GFR 39.6; GLUCOSE 101 mg/dL (70-99); LIPASE 305 U/L (73-393); SODIUM 142 mmol/L (136-145)
[2017-10-08] MEDS: SUCRALFATE 1 GM TABLET. PO ×4 (07:30→20:40)
[2017-10-08] MEDS: GABAPENTIN 300 MG CAPSULE. PO ×3 (09:00→20:40)
[2017-10-08] MEDS: clonazePAM 0.5 MG TABLET PO ×3 (09:00→20:40)
[2017-10-08] MEDS: oxyCODONE/APAP 10/325 1 TAB TABLET PO ×3 (09:46→20:40)
[2017-10-08] MEDS: IV RINGERS,LACTATED 1000ML 1,000 ML IV (10:11)
[2017-10-08] MEDS ORDERED: PROPOFOL 20 ML IV (10:48)
[2017-10-08] MEDS: ASPIRIN ENTERIC COATED 81 MG TABLET.DR. PO (12:54)
[2017-10-08] MEDS: DOCUSATE SODIUM 100 MG CAPSULE. PO (12:54)
[2017-10-08] MEDS: CARVEDILOL 6.25 MG TABLET. PO ×2 (12:54→17:00)
[2017-10-08] MEDS: FLUoxetine HCL 20 MG CAPSULE PO (12:55)
[2017-10-08] MEDS: MORPHINE SULFATE 4 MG/ML DISP.SYRIN. IV (12:55)
[2017-10-08] MEDS: amLODIPine BESYLATE 10 MG TABLET PO (12:55)
[2017-10-08] MEDS: PANTOPRAZOLE 40 MG TABLET.DR. PO (17:05)
[2017-10-08] MEDS: DOXEPIN HCL 25 MG CAPSULE. PO (20:39)
[2017-10-08] MEDS: ASA/APAP/CAFFEINE 250/250/65MG TABLET. PO (20:40)
[2017-10-09] MEDS: oxyCODONE/APAP 10/325 1 TAB TABLET PO ×4 (04:15→20:46)
[2017-10-09 04:41] LABS: ADD MAN DIFF? NO
[2017-10-09 04:47] LABS: BASO % 1 % (0-3); EOS # 0.5 x10^3/uL (0.0-0.7); EOS % 5 % (0-3); HEMATOCRIT 37.7 % (36.0-47.0); HEMOGLOBIN 12.2 g/dL (12.0-15.5); LYMPH # 1.9 x10^3/uL (1.0-4.8); LYMPH % 21 % (24-48); MEAN CORPUSCULAR HEMOGLOBIN 30 pg (25-35); MEAN CORPUSCULAR HGB CONC 32 g/dL (31-37); MEAN CORPUSCULAR VOLUME 92 fL (79-100); MONO # 0.8 x10^3/uL (0.0-1.1); MONO % 9 % (0-9); NEUT # 5.8 x10^3uL (1.8-7.7); NEUT % 64 % (31-73); PLATELET COUNT 308 x10^3/uL (140-400)
[2017-10-09 05:10] LABS: ANION GAP 7 (6-14); BLOOD UREA NITROGEN 18 mg/dL (7-20); CALCIUM 9.3 mg/dL (8.5-10.1); CARBON DIOXIDE 33 mmol/L (21-32); CHLORIDE 101 mmol/L (98-107); CREATININE 1.5 mg/dL (0.6-1.0); GFR 36.6; GLUCOSE 106 mg/dL (70-99); POTASSIUM 3.6 mmol/L (3.5-5.1); SODIUM 141 mmol/L (136-145)
[2017-10-09] MEDS: PANTOPRAZOLE 40 MG TABLET.DR. PO ×2 (08:21→17:11)
[2017-10-09] MEDS: ASPIRIN ENTERIC COATED 81 MG TABLET.DR. PO (08:21)
[2017-10-09] MEDS: DOCUSATE SODIUM 100 MG CAPSULE. PO (08:21)
[2017-10-09] MEDS: CARVEDILOL 6.25 MG TABLET. PO ×2 (08:22→17:00)
[2017-10-09] MEDS: amLODIPine BESYLATE 10 MG TABLET PO (08:22)
[2017-10-09] MEDS: clonazePAM 0.5 MG TABLET PO ×3 (08:22→20:46)
[2017-10-09] MEDS: GABAPENTIN 300 MG CAPSULE. PO ×3 (08:22→20:46)
[2017-10-09] MEDS: SUCRALFATE 1 GM TABLET. PO ×4 (08:22→20:46)
[2017-10-09] MEDS: FLUoxetine HCL 20 MG CAPSULE PO (08:22)
[2017-10-09] MEDS: DOXYCYCLINE HYCLATE 100 MG TABLET PO ×2 (14:07→20:46)
[2017-10-09] MEDS ORDERED: tiZANidine 4 MG TABLET. PO (15:15)
[2017-10-09] MEDS: ASA/APAP/CAFFEINE 250/250/65MG TABLET. PO (19:41)
[2017-10-09] MEDS: IPRATRPIUM/ALBUTEROL 0.5/2.5MG 3 ML NEBU. NEB (19:46)
[2017-10-09] MEDS: DOXEPIN HCL 25 MG CAPSULE. PO (20:45)
[2017-10-09] MEDS: LACTOBACILLUS RHAMNOSUS GG 1 CAPSULE. PO (20:46)
[2017-10-10] MEDS: oxyCODONE/APAP 10/325 1 TAB TABLET PO ×4 (03:00→20:50)
[2017-10-10 04:28] LABS: ADD MAN DIFF? NO
[2017-10-10 04:41] LABS: BASO % 1 % (0-3); EOS # 0.5 x10^3/uL (0.0-0.7); EOS % 6 % (0-3); HEMOGLOBIN 11.9 g/dL (12.0-15.5); LYMPH # 1.9 x10^3/uL (1.0-4.8); LYMPH % 26 % (24-48); MEAN CORPUSCULAR HEMOGLOBIN 31 pg (25-35); MEAN CORPUSCULAR HGB CONC 33 g/dL (31-37); MEAN CORPUSCULAR VOLUME 92 fL (79-100); MONO # 0.7 x10^3/uL (0.0-1.1); MONO % 9 % (0-9); NEUT # 4.3 x10^3uL (1.8-7.7); NEUT % 58 % (31-73); PLATELET COUNT 318 x10^3/uL (140-400); RED CELL DISTRIBUTION WIDTH 14.8 % (11.5-14.5); WHITE BLOOD COUNT 7.4 x10^3/uL (4.0-11.0)
[2017-10-10 05:04] LABS: ANION GAP 5 (6-14); BLOOD UREA NITROGEN 16 mg/dL (7-20); CALCIUM 9.5 mg/dL (8.5-10.1); CARBON DIOXIDE 35 mmol/L (21-32); CHLORIDE 102 mmol/L (98-107); CREATININE 1.5 mg/dL (0.6-1.0); GFR 36.6; GLUCOSE 117 mg/dL (70-99); POTASSIUM 4.2 mmol/L (3.5-5.1); SODIUM 142 mmol/L (136-145)
[2017-10-10] MEDS: amLODIPine BESYLATE 10 MG TABLET PO (07:55)
[2017-10-10] MEDS: SUCRALFATE 1 GM TABLET. PO ×4 (07:56→20:43)
[2017-10-10] MEDS: GABAPENTIN 300 MG CAPSULE. PO ×4 (07:57→20:50)
[2017-10-10] MEDS: DOXYCYCLINE HYCLATE 100 MG TABLET PO ×2 (07:57→20:43)
[2017-10-10] MEDS: FLUoxetine HCL 20 MG CAPSULE PO (07:58)
[2017-10-10] MEDS: ASPIRIN ENTERIC COATED 81 MG TABLET.DR. PO (07:59)
[2017-10-10] MEDS: LACTOBACILLUS RHAMNOSUS GG 1 CAPSULE. PO ×2 (07:59→20:43)
[2017-10-10] MEDS: CARVEDILOL 6.25 MG TABLET. PO ×2 (08:00→16:39)
[2017-10-10] MEDS: PANTOPRAZOLE 40 MG TABLET.DR. PO ×2 (08:01→16:39)
[2017-10-10] MEDS: DOCUSATE SODIUM 100 MG CAPSULE. PO (08:01)
[2017-10-10] MEDS: clonazePAM 0.5 MG TABLET PO ×3 (08:01→20:43)
[2017-10-10] MEDS: IPRATRPIUM/ALBUTEROL 0.5/2.5MG 3 ML NEBU. NEB ×4 (08:32→19:21)
[2017-10-10] MEDS: ASA/APAP/CAFFEINE 250/250/65MG TABLET. PO (09:40)
[2017-10-10] MEDS: DOXEPIN HCL 25 MG CAPSULE. PO (20:43)
[2017-10-11] MEDS: oxyCODONE/APAP 10/325 1 TAB TABLET PO ×5 (01:58→21:14)
[2017-10-11 05:53] LABS: ADD MAN DIFF? NO
[2017-10-11 06:05] LABS: BASO % 1 % (0-3); EOS # 0.5 x10^3/uL (0.0-0.7); EOS % 7 % (0-3); HEMATOCRIT 35.9 % (36.0-47.0); HEMOGLOBIN 11.9 g/dL (12.0-15.5); LYMPH # 1.7 x10^3/uL (1.0-4.8); LYMPH % 27 % (24-48); MEAN CORPUSCULAR HEMOGLOBIN 30 pg (25-35); MEAN CORPUSCULAR HGB CONC 33 g/dL (31-37); MEAN CORPUSCULAR VOLUME 91 fL (79-100); MONO # 0.6 x10^3/uL (0.0-1.1); MONO % 9 % (0-9); NEUT # 3.6 x10^3uL (1.8-7.7); NEUT % 56 % (31-73); PLATELET COUNT 325 x10^3/uL (140-400); RED BLOOD COUNT 3.95 x10^6/uL (3.50-5.40); RED CELL DISTRIBUTION WIDTH 14.7 % (11.5-14.5); WHITE BLOOD COUNT 6.3 x10^3/uL (4.0-11.0)
[2017-10-11 06:31] LABS: ANION GAP 4 (6-14); BLOOD UREA NITROGEN 17 mg/dL (7-20); CALCIUM 9.3 mg/dL (8.5-10.1); CARBON DIOXIDE 38 mmol/L (21-32); CHLORIDE 105 mmol/L (98-107); CREATININE 1.6 mg/dL (0.6-1.0); GLUCOSE 103 mg/dL (70-99); POTASSIUM 3.8 mmol/L (3.5-5.1); SODIUM 147 mmol/L (136-145)
[2017-10-11] MEDS: SUCRALFATE 1 GM TABLET. PO ×4 (08:10→21:14)
[2017-10-11] MEDS: CARVEDILOL 6.25 MG TABLET. PO ×2 (08:11→16:22)
[2017-10-11] MEDS: PANTOPRAZOLE 40 MG TABLET.DR. PO ×2 (08:11→16:21)
[2017-10-11] MEDS: IPRATRPIUM/ALBUTEROL 0.5/2.5MG 3 ML NEBU. NEB ×4 (08:13→19:10)
[2017-10-11] MEDS: DOCUSATE SODIUM 100 MG CAPSULE. PO (09:16)
[2017-10-11] MEDS: ASPIRIN ENTERIC COATED 81 MG TABLET.DR. PO (09:16)
[2017-10-11] MEDS: clonazePAM 0.5 MG TABLET PO ×3 (09:16→21:13)
[2017-10-11] MEDS: DOXYCYCLINE HYCLATE 100 MG TABLET PO ×2 (09:16→21:13)
[2017-10-11] MEDS: LACTOBACILLUS RHAMNOSUS GG 1 CAPSULE. PO ×2 (09:16→21:13)
[2017-10-11] MEDS: FLUoxetine HCL 20 MG CAPSULE PO (09:16)
[2017-10-11] MEDS: GABAPENTIN 300 MG CAPSULE. PO ×2 (13:47→21:13)
[2017-10-11] MEDS: DOXEPIN HCL 25 MG CAPSULE. PO (21:14)
[2017-10-12] MEDS: oxyCODONE/APAP 10/325 1 TAB TABLET PO ×2 (04:36→11:42)
[2017-10-12 06:42] LABS: ADD MAN DIFF? NO
[2017-10-12 07:09] LABS: ANION GAP 4 (6-14); BLOOD UREA NITROGEN 15 mg/dL (7-20); CALCIUM 9.3 mg/dL (8.5-10.1); CARBON DIOXIDE 36 mmol/L (21-32); CHLORIDE 105 mmol/L (98-107); CREATININE 1.5 mg/dL (0.6-1.0); GFR 36.6; GLUCOSE 105 mg/dL (70-99); SODIUM 145 mmol/L (136-145)
[2017-10-12] MEDS: SUCRALFATE 1 GM TABLET. PO ×3 (07:38→17:21)
[2017-10-12] MEDS: PANTOPRAZOLE 40 MG TABLET.DR. PO ×2 (07:38→17:21)
[2017-10-12] MEDS: CARVEDILOL 6.25 MG TABLET. PO ×2 (07:39→17:21)
[2017-10-12 07:43] LABS: BASO % 1 % (0-3); EOS # 0.4 x10^3/uL (0.0-0.7); EOS % 7 % (0-3); HEMATOCRIT 34.9 % (36.0-47.0); HEMOGLOBIN 11.3 g/dL (12.0-15.5); LYMPH # 1.7 x10^3/uL (1.0-4.8); LYMPH % 29 % (24-48); MEAN CORPUSCULAR HEMOGLOBIN 30 pg (25-35); MEAN CORPUSCULAR HGB CONC 33 g/dL (31-37); MEAN CORPUSCULAR VOLUME 93 fL (79-100); MONO # 0.6 x10^3/uL (0.0-1.1); MONO % 10 % (0-9); NEUT # 3.2 x10^3uL (1.8-7.7); NEUT % 53 % (31-73); PLATELET COUNT 334 x10^3/uL (140-400); RED BLOOD COUNT 3.75 x10^6/uL (3.50-5.40); RED CELL DISTRIBUTION WIDTH 14.9 % (11.5-14.5); WHITE BLOOD COUNT 5.9 x10^3/uL (4.0-11.0)
[2017-10-12] MEDS: IPRATRPIUM/ALBUTEROL 0.5/2.5MG 3 ML NEBU. NEB ×3 (08:06→16:13)
[2017-10-12] MEDS: FLUoxetine HCL 20 MG CAPSULE PO (09:04)
[2017-10-12] MEDS: clonazePAM 0.5 MG TABLET PO ×2 (09:04→14:47)
[2017-10-12] MEDS: LACTOBACILLUS RHAMNOSUS GG 1 CAPSULE. PO (09:04)
[2017-10-12] MEDS: GABAPENTIN 300 MG CAPSULE. PO ×2 (09:04→14:47)
[2017-10-12] MEDS: ASPIRIN ENTERIC COATED 81 MG TABLET.DR. PO (09:04)
[2017-10-12] MEDS: DOCUSATE SODIUM 100 MG CAPSULE. PO (09:04)
[2017-10-12] MEDS: DOXYCYCLINE HYCLATE 100 MG TABLET PO (11:41)
== END 2017-10-12 17:15 | disposition home or self-care (01) | DRG 291 ==
LOC: ER 20:58 → 5 NORTH 23:20
PROC: 0DJ08ZZ Inspection of Upper Intestinal Tract, Via Natural or Artificial Opening Endoscopic (ICD-10-PCS; principal; 2017-10-08 11:00)
DX: I13.0 Hypertensive heart and chronic kidney disease with heart failure and stage 1 through stage 4 chronic kidney disease, or unspecified chronic kidney disease (principal); N17.0 Acute kidney failure with tubular necrosis; E44.0 Moderate protein-calorie malnutrition; E86.0 Dehydration; E66.01 Morbid (severe) obesity due to excess calories; K86.1 Other chronic pancreatitis; G62.9 Polyneuropathy, unspecified; J44.1 Chronic obstructive pulmonary disease with (acute) exacerbation; I50.30 Unspecified diastolic (congestive) heart failure; Z68.42 Body mass index [BMI] 45.0-49.9, adult; N18.3 Chronic kidney disease, stage 3 (moderate); K29.60 Other gastritis without bleeding; K21.0 Gastro-esophageal reflux disease with esophagitis; F31.9 Bipolar disorder, unspecified; F41.9 Anxiety disorder, unspecified; G47.33 Obstructive sleep apnea (adult) (pediatric); G89.29 Other chronic pain; I25.10 Atherosclerotic heart disease of native coronary artery without angina pectoris; M17.0 Bilateral primary osteoarthritis of knee; M79.7 Fibromyalgia; M54.30 Sciatica, unspecified side; K28.9 Gastrojejunal ulcer, unspecified as acute or chronic, without hemorrhage or perforation; R09.02 Hypoxemia; R13.10 Dysphagia, unspecified; Z79.82 Long term (current) use of aspirin; I25.2 Old myocardial infarction; Z79.899 Other long term (current) drug therapy; Z82.49 Family history of ischemic heart disease and other diseases of the circulatory system; Z83.3 Family history of diabetes mellitus; Z87.11 Personal history of peptic ulcer disease; Z88.0 Allergy status to penicillin; Z88.8 Allergy status to other drugs, medicaments and biological substances; Z90.49 Acquired absence of other specified parts of digestive tract; Z90.710 Acquired absence of both cervix and uterus; Z95.5 Presence of coronary angioplasty implant and graft; Z98.51 Tubal ligation status; Z90.89 Acquired absence of other organs
CPT/HCPCS: 36415; 71046; 72110; 74176; 78582; 80048; 80053; 80061; 80076; 81001; 83690; 83735; 83880; 84484; 85025; 93005; 94618; 94640; 94760; 96374; 96375; 97161-GP; 99285; 99285-25; A9540; A9558; C9113; J0360; J2270; J2405; J2704; J3010; J3490; J7030; J7120; J7620; Q0162

== ENCOUNTER → 2018-08-13 | Outpatient (CLI) | payer BC, OTHER ==
[2017-10-12 15:00] VITALS: BP 118/65
[~2018-08-13] MED LIST changes: -AMLO2.5T PO; +AMLO2.5T3 PO; +AMLO5TAB7 PO; +ASCO100T4 PO; +CARV3.1210 PO; +CARV6.2511 PO; +CITA20TA6 PO; +CLON0.5T11 PO; -CLON0.5T3 PO; +DOXE100C PO; +DOXY100C14 PO; +FLUO20CA8 PO; +FLUT100D IH; -HYDR-2758 PO; +HYDR-2761 PO; -HYDR-2762 PO; +HYDR-2765 PO; +HYDR-3164 PO; +HYDR-3165 PO; -HYDR-965 PO; -HYDR-971 PO; +LAMO100T PO; +PANT20TA2 PO; +PRAM0.255 PO; +SUCR1TAB35 PO; +TRAM50TA PO; +VARE1TAB21 PO
--- NOTE | 2018-08-13 19:19 | PAIN ---
DATE OF SERVICE: 08/13/2018 INITIAL CONSULTATION FOR PAIN CLINIC CHIEF COMPLAINT: Low back and bilateral lower extremity pain. HISTORY OF PRESENT ILLNESS: This is a 53-year-old female who presents with history of pain since 2006, gradually increasing, not a result any specific injury or action that she is aware of. Pain in the low back, mid back, upper back, bilateral lower extremities, arms, shoulders. The patient reports the pain is constant, stabbing, throbbing, shooting, radiating tingling and aching. The patient reports she has been diagnosed with fibromyalgia as well as arthritis. She reports that the pain is most significant in her mid to low back and lower extremity. She has had difficulty with sleeping, wakes her from sleep at least 3 times at night, does not affect her bowel or bladder control, but does affect her ability to walk. She uses a cane, walker, or wheelchair when she can. She had a cane with her today. The patient has had previous epidural injections, trigger point injections, physical therapy, exercising, also has had facet injections and radiofrequency ablation most recently, which none of these have helped for more than just a few days by her report. The patient reports still significant pain with all activities and essentially all over pain throughout the body, again worse in the low back. The patient did have MRI studies of the lumbar spine, which are dated 01/2018 showing multilevel degenerative disk disease, facet arthropathy without significant central or neural foraminal stenosis, most significant at the L4-L5 level with slight disk bulge, also cervical spine films showing mild cervical spondylosis with focal central spinal narrowing at C5-C6, multilevel mild neural foraminal stenosis as described. The patient reports the only thing that helps her is oxycodone. This decreases the pain significantly by about 70% without significant side effects. The patient reports no loss of motor function. No falls or significant motor loss, but significant fatigability with the lower extremities when ambulating. The patient rates her disability rate from 0-10, 10 being the worst, is a 10 in all categories, family and home responsibilities, recreation, social activity, occupation, sexual behavior, self-care and life support activities. PAST MEDICAL HISTORY: Significant for shortness of breath, hypertension, obesity, dizziness, arthritis, fibromyalgia, kidney stones, cervical cancer. PREVIOUS SURGERY: Include bilateral meniscal repair in 2018, cholecystectomy, tubal ligation, hysterectomy. CURRENT MEDICATIONS: Include albuterol, amlodipine, vitamin C, daily baby aspirin, carvedilol, clonazepam, doxepin, fluticasone inhaler, gabapentin, lamotrigine, ondansetron, oxycodone, pantoprazole, pramipexole. ALLERGIES: THE PATIENT IS ALLERGIC TO AMOXICILLIN. FAMILY HISTORY: Significant for hypertension. SOCIAL HISTORY: The patient does not drink alcohol, has quit smoking recently. Does not use any illegal, illicit or recreational drugs. She is single, lives locally . She is currently on disability secondary to her current pain situation. REVIEW OF SYSTEMS: The patient's review of systems is positive for those items mentioned in history of present illness. All systems reviewed and otherwise negative. It is complete, full and well documented on the patient's chart. PHYSICAL EXAMINATION: VITAL SIGNS: The patient's blood pressure is 123/76, pulse 77, respirations are 18, temperature is 97.8 degrees Fahrenheit, height is 5 feet 7 inches, weight is 317 pounds. GENERAL: The patient is awake, alert, oriented, appropriate, very pleasant demeanor. HEENT: Shows normocephalic and atraumatic. Extraocular movements intact and symmetrical. Oral cavity: Mucous membranes moist and pink. Dentition is intact. NECK: Shows anterior throat supple without palpable lymphadenopathy noted. Swallow reflex is symmetrical. CHEST: Shows normal on inspection. Breath sounds are clear to auscultation bilaterally. HEART: Shows S1, S2 clear. No murmurs auscultated. ABDOMEN: Obese, soft, nontender, nondistended. No palpable organomegaly is noted. No rebound or guarding demonstrated. BACK: Shows spine grossly in the midline, normal-appearing cervical lordotic curvature, slight increase in thoracic kyphotic curvature and minor lumbar lordotic curvature flattening. Lumbar paraspinous muscle shows symmetrical on inspection. On palpation shows some moderate tenderness throughout the upper, middle, lower distribution of paraspinous muscles diffusely without specific radiation or trigger points. This is true in the thoracic paraspinous musculature bilaterally as well. The patient has good rotational motion of lumbar spine, both laterally as well as extension and flexion with some minor tenderness with extension, but only diffusely at forward flexion without pain at 45 degrees. Right and left lateral rotation shows some minor pain in the lumbar distribution, each direction at 10 degrees as well, but without radiation. EXTREMITIES: The patient's lower extremities show deep tendon reflexes 1+ in the patellar and tendo calcaneus tendons. Motor exam is approximately 4 on a scale of 5, but equal and symmetrical bilaterally. Peripheral pulses are 1+ posterior tibial. Lower extremities are warm and dry to touch, equal in color and appearance. The patient is able to stand, has difficulty trying to stand on her toes as she loses balance, but is walking with a shuffling gait, appears to favor the right lower extremity over the left, but using a cane in her right hand as well. IMPRESSION: This is a 53-year-old female with: 1. Long history of pain, multiple areas, worse in the low back and lower extremity, status post multiple interventional techniques including radiofrequency ablation, facet joint injections, epidural injections, physical therapies, stretching and strengthening, etc. without significant improvement. 2. Obesity. 3. Hypertension. 4. Arthritis. PLAN: Options were discussed with the patient including conservative medical management, physical therapy, interventional techniques and she has done all of these in the past and is somewhat disappointed that she does not have any other options at this time. She asked for oxycodone. Again, I declined this as we would not do chronic medication management with this. The patient is also encouraged weight loss and water therapy. The patient reports she would like to think about the water therapy and that she is scheduled to have weight loss surgery in about 6 months from now since she has recently quit smoking. I informed her that if she would like to reconsider this, we would be happy to arrange this for her. The patient will consider this and follow up at this time on as needed basis. JOSE ENRIQUE IZAGUIRRE MD DR: SHADE/gabriel JOB#: [id number] / [id number] PEARL Guido
== END | disposition home or self-care (01) ==
LOC: PNCL 09:42
PROVIDERS: ATTEND Anesthesiology
DX: M51.36 Other intervertebral disc degeneration, lumbar region (principal); M47.812 Spondylosis without myelopathy or radiculopathy, cervical region; M48.02 Spinal stenosis, cervical region; I10 Essential (primary) hypertension; E66.9 Obesity, unspecified; M19.90 Unspecified osteoarthritis, unspecified site; Z87.442 Personal history of urinary calculi; Z90.49 Acquired absence of other specified parts of digestive tract; Z90.710 Acquired absence of both cervix and uterus; Z88.1 Allergy status to other antibiotic agents; Z82.49 Family history of ischemic heart disease and other diseases of the circulatory system; Z87.891 Personal history of nicotine dependence
CPT/HCPCS: G0463

== ENCOUNTER 2019-05-28 17:44 | Emergency (ER) | payer MEDICARE, OTHER ==
[~2019-05-28] VITALS: Ht 170.2 cm; Wt 141.1 kg
[~2019-05-28 17:44] MED LIST changes: -AMLO2.5T3 PO; +AMLO2.5T5 PO; +AMLO5TAB10 PO; -AMLO5TAB7 PO; +CLON-77 PO; -CLON0.5T11 PO; +MONT10TA49 PO; -MONT10TA6 PO; +OMEP20CA10 PO; -OMEP20CA9 PO; +OMEP40CA45 PO; -OMEP40CA5 PO
[2019-05-28] MEDS ORDERED: ONDANSETRON PF 4 MG/2 ML VIAL. IVP ONE (18:30)
[2019-05-28] MEDS ORDERED: LIDO:MAALOX 1:1 20 ML SINGLE DOSE. SWSW ONE (18:30)
[2019-05-28] MEDS ORDERED: FAMOTIDINE 20 MG/2 ML VIAL IVP ONE (18:30)
[2019-05-28] MEDS ORDERED: IV NORMAL SALINE 1000ML BAG 1,000 ML IV ONE (18:30)
[2019-05-28 18:44] LABS: BILIRUBIN,URINE NEGATIVE (NEG); CLARITY,URINE CLEAR; COLOR,URINE YELLOW; NITRITE,URINE NEGATIVE (NEG); PH,URINE 5.5; PROTEIN,URINE 100 mg/dL (NEG-TRACE); UROBILINOGEN,URINE 0.2 mg/dL (0.2 mg/dL)
[2019-05-28 18:45] LABS: BARBITURATES NEG (NEG); BENZODIAZEPINES NEG (NEG); CANNABINOIDS NEG (NEG); COCAINE NEG (NEG); METHADONE NEG (NEG); OPIATES NEG (NEG); PHENCYCLIDINE NEG (NEG)
[2019-05-28 18:48] LABS: AMPHETAMINE/METHAMPHETAMINE NEG (NEG)
[2019-05-28 19:04] LABS: BASO # 0.1 x10^3/uL (0.0-0.2); BASO % 1 % (0-3); EOS # 0.2 x10^3/uL (0.0-0.7); EOS % 4 % (0-3); HEMATOCRIT 40.8 % (36.0-47.0); HEMOGLOBIN 13.5 g/dL (12.0-15.5); LYMPH # 1.8 x10^3/uL (1.0-4.8); LYMPH % 29 % (24-48); MEAN CORPUSCULAR HEMOGLOBIN 29 pg (25-35); MEAN CORPUSCULAR HGB CONC 33 g/dL (31-37); MEAN CORPUSCULAR VOLUME 88 fL (79-100); MONO # 0.4 x10^3/uL (0.0-1.1); MONO % 7 % (0-9); NEUT # 3.7 x10^3/uL (1.8-7.7); NEUT % 59 % (31-73); PLATELET COUNT 328 x10^3/uL (140-400); RED BLOOD COUNT 4.62 x10^6/uL (3.50-5.40); RED CELL DISTRIBUTION WIDTH 15.4 % (11.5-14.5); WHITE BLOOD COUNT 6.2 x10^3/uL (4.0-11.0)
[2019-05-28 19:04] LABS: SQUAMOUS EPITHELIAL CELL,UR MANY /LPF
[2019-05-28 19:07] LABS: BACTERIA,URINE MODERATE /HPF (0-FEW); RBC,URINE OCC /HPF (0-2); WBC,URINE 20-40 /HPF (0-4)
[2019-05-28 19:13] LABS: CALCIUM 9.7 mg/dL (8.5-10.1); CREATININE 1.6 mg/dL (0.6-1.0); GFR 33.7; POTASSIUM 3.9 mmol/L (3.5-5.1)
[2019-05-28 19:27] LABS: ALBUMIN 3.7 g/dL (3.4-5.0); TOTAL BILIRUBIN 0.2 mg/dL (0.2-1.0); TOTAL PROTEIN 7.3 g/dL (6.4-8.2)
--- NOTE | 2019-05-28 19:51 | RAD ---
Exam: CT abdomen and pelvis without contrast INDICATION: Generalized abdominal pain for 3 days TECHNIQUE: Sequential axial images through the abdomen and pelvis obtained without IV contrast. Sagittal and coronal reformatted images were reconstructed from the axial data and reviewed. Comparisons: CT 10/04/2017 FINDINGS: Heart size is normal. No pericardial effusion. Linear bandlike opacities at the lung bases likely representing atelectasis. No pleural effusion. Evaluation of the solid organs is limited secondary to noncontrast technique. Liver, spleen, pancreas, and adrenals are unremarkable. Gallbladder is surgically absent. Kidneys demonstrate symmetric enhancement. No perinephric inflammation or hydronephrosis. No renal or ureteral calculi are identified. Bladder is incompletely distended and not well evaluated. Uterus is absent. No abnormal adnexal mass. Large and small bowel are unremarkable. No obstruction. No free intra-abdominal air or fluid. Appendix is not identified. Abdominal aorta has a normal course and caliber. No enlarged intra-abdominal lymph nodes are identified. No suspicious osseous lesions or acute fractures. IMPRESSION: No acute process identified within the abdomen or pelvis. Exposure: One or more of the following in the visualized dose reduction techniques were utilized for this examination: 1. Automated exposure control 2. Adjustment of the MA and/or KV according to patient size 3. Use of iterative of reconstructive technique Electronically signed by: Brent Mcgowan MD (05/28/2019 7:48 PM) [facility]
[2019-05-28 20:26] VITALS: BP 116/63
[2019-05-28] MEDS ORDERED: ONDA4TAB12 PO (20:43)
[2019-05-28] MEDS ORDERED: SULF1TAB24 PO (20:43)
--- NOTE | 2019-05-28 20:43 | PHYS DOC ---
Past Medical History Past Medical History: Anemia, Anxiety, Bipolar, CAD, CHF, Depression, Fibromyalgia, GERD, Heart Disease, [place], Pancreatitis, Renal Failure, Sciatica, UTI, Other Additional Past Medical Histor: obesity, seasonal allergies, drug seeking behavior, neuropathy, ulcer (DIAZ ZARATE APRN) Past Surgical History: Cholecystectomy, Hysterectomy, Tubal ligation, Other Additional Past Surgical Histo: L knee surgery, cardiac stent, ESOPHAGUS SX (DIAZ ZARATE APRN) Additional Information: "7 cigs a day" Alcohol Use: None Drug Use: None (DIAZ ZARATE APRN) Attending Signature I have participated in the care of this patient and I have reviewed and agree with all pertinent clinical information above including history, exam, and recommendations. (RADHIKA LEVINE MD) Adult General Chief Complaint Chief Complaint: ABDOMINAL PAIN HPI HPI Patient is a 54 year old female with history of multiple medical problems including bipolar, hypertension, high cholesterol, anxiety, acid reflex, sciatica, and minimal other illnesses who presents to the ED today complaining of 8 out of 10 abdominal pain described as tightening with chronic diarrhea, abdominal pain began 3 days ago. Patient states she always has diarrhea after eating, she states this is a chronic condition. She is also complaining of nausea but no vomiting. She states she has tried her acid reflex medications wit h no relief. Denies any bloody stools. (DIAZ ZARATE APRN) Review of Systems Review of Systems Constitutional: Denies fever or chills [] Eyes: Denies change in visual acuity, redness, or eye pain [] HENT: Denies nasal congestion or sore throat [] Respiratory: Denies cough or shortness of breath [] Cardiovascular: No additional information not addressed in HPI [] GI: Reports abdominal pain, nausea, diarrhea, denies vomiting : Denies dysuria or hematuria [] Musculoskeletal: Denies back pain or joint pain [] Integument: Denies rash or skin lesions [] Neurologic: Denies headache, focal weakness or sensory changes [] All other systems were reviewed and found to be within normal limits, except as documented in this note. (DIAZ ZARATE APRN) Current Medications Current Medications Current Medications Medications (Trade) Dose Ordered Sig/Dorian Start Time Stop Time Status Last Admin Dose Admin Famotidine (Pepcid Vial) 20 mg 1X ONCE 05/28/19 18:30 05/28/19 18:31 DC 05/28/19 18:41 20 MG Multi-Ingredient Mouthwash/Gargle (Gi Cocktail) 20 ml 1X ONCE 05/28/19 18:30 05/28/19 18:31 DC 05/28/19 18:40 20 ML Ondansetron HCl (Zofran) 4 mg 1X ONCE 05/28/19 18:30 05/28/19 18:31 DC 05/28/19 18:41 4 MG Sodium Chloride 1,000 ml @ 1,000 mls/hr 1X ONCE 05/28/19 18:30 05/28/19 19:29 DC 05/28/19 18:40 1,000 MLS/HR (RADHIKA LEVINE MD) Allergies Allergies Allergies Coded Allergies Type Severity Reaction Last Updated Verified Penicillins Allergy Intermediate HIVES 10/08/17 Yes clavulanic acid Allergy Intermediate Nausea 10/08/17 Yes duloxetine Allergy Intermediate Nausea and Vomiting 10/08/17 Yes varenicline Allergy Intermediate 10/08/17 Yes amoxicillin Adverse Reaction Intermediate Nausea 10/08/17 Yes (RADHIKA LEVINE MD) Physical Exam Physical Exam Constitutional: Well developed, well nourished, no acute distress, non-toxic appearance. [] HENT: Normocephalic, atraumatic, bilateral external ears normal, oropharynx moist, no oral exudates, nose normal. [] Eyes: PERRLA, EOMI, conjunctiva normal, no discharge. [] Neck: Normal range of motion, no tenderness, supple, no stridor. [] Cardiovascular:Heart rate regular rhythm, no murmur [] Lungs & Thorax: Bilateral breath sounds clear to auscultation [] Abdomen: Morbidly obese abdomen. Bowel sounds normal, soft, diffuse tenderness throughout the upper abdomen, no masses, no pulsatile masses. [] Skin: Warm, dry, no erythema, no rash. [] Back: No tenderness, no CVA tenderness. [] Extremities: No tenderness, no cyanosis, no clubbing, ROM intact, no edema. [] Neurologic: Alert and oriented X 3, normal motor function, normal sensory function, no focal deficits noted. [] Psychologic: Affect normal, judgement normal, mood normal. [] (DIAZ ZARATE APRN) Current Patient Data Vital Signs Vital Signs Date Time Temp Pulse Resp B/P (MAP) Pulse Ox O2 Delivery O2 Flow Rate FiO2 05/28/19 20:26 74 116/63 (80) 93 Room Air 05/28/19 17:52 97.8 18 97.8 (RADHIKA LEVINE MD) Lab Values Laboratory Tests Test 05/28/19 18:35 05/28/19 18:39 Urine Collection Type Unknown Urine Color Yellow Urine Clarity Clear Urine pH 5.5 Urine Specific [place] 1.025 Urine Protein 100 mg/dL (NEG-TRACE) Urine Glucose (UA) Negative mg/dL (NEG) Urine Ketones (Stick) Negative mg/dL (NEG) Urine Blood Negative (NEG) Urine Nitrite Negative (NEG) Urine Bilirubin Negative (NEG) Urine Urobilinogen Dipstick 0.2 mg/dL (0.2 mg/dL) Urine Leukocyte Esterase Small (NEG) Urine RBC Occ /HPF (0-2) Urine WBC 20-40 /HPF (0-4) Urine Squamous Epithelial Cells Many /LPF Urine Bacteria Moderate /HPF (0-FEW) Urine Mucus Marked /LPF Urine Opiates Screen Neg (NEG) Urine Methadone Screen Neg (NEG) Urine Barbiturates Neg (NEG) Urine Phencyclidine Screen Neg (NEG) Urine Amphetamine/Methamphetamine Neg (NEG) Urine Benzodiazepines Screen Neg (NEG) Urine Cocaine Screen Neg (NEG) Urine Cannabinoids Screen Neg (NEG) Urine Ethyl Alcohol Neg (NEG) White Blood Count 6.2 x10^3/uL (4.0-11.0) Red Blood Count 4.62 x10^6/uL (3.50-5.40) Hemoglobin 13.5 g/dL (12.0-15.5) Hematocrit 40.8 % (36.0-47.0) Mean Corpuscular Volume 88 fL (79-100) Mean Corpuscular Hemoglobin 29 pg (25-35) Mean Corpuscular Hemoglobin Concent 33 g/dL (31-37) Red Cell Distribution Width 15.4 % (11.5-14.5) H Platelet Count 328 x10^3/uL (140-400) Neutrophils (%) (Auto) 59 % (31-73) Lymphocytes (%) (Auto) 29 % (24-48) Monocytes (%) (Auto) 7 % (0-9) Eosinophils (%) (Auto) 4 % (0-3) H Basophils (%) (Auto) 1 % (0-3) Neutrophils # (Auto) 3.7 x10^3/uL (1.8-7.7) Lymphocytes # (Auto) 1.8 x10^3/uL (1.0-4.8) Monocytes # (Auto) 0.4 x10^3/uL (0.0-1.1) Eosinophils # (Auto) 0.2 x10^3/uL (0.0-0.7) Basophils # (Auto) 0.1 x10^3/uL (0.0-0.2) Sodium Level 143 mmol/L (136-145) Potassium Level 3.9 mmol/L (3.5-5.1) Chloride Level 106 mmol/L (98-107) Carbon Dioxide Level 31 mmol/L (21-32) Anion Gap 6 (6-14) Blood Urea Nitrogen 14 mg/dL (7-20) Creatinine 1.6 mg/dL (0.6-1.0) H Estimated GFR (Cockcroft-Gault) 33.7 BUN/Creatinine Ratio 9 (6-20) Glucose Level 113 mg/dL (70-99) H Calcium Level 9.7 mg/dL (8.5-10.1) Total Bilirubin 0.2 mg/dL (0.2-1.0) Aspartate Amino Transferase (AST) 14 U/L (15-37) L Alanine Aminotransferase (ALT) 18 U/L (14-59) Alkaline Phosphatase 106 U/L (46-116) Total Protein 7.3 g/dL (6.4-8.2) Albumin 3.7 g/dL (3.4-5.0) Albumin/Globulin Ratio 1.0 (1.0-1.7) Lipase 93 U/L (73-393) Ethyl Alcohol Level < 10 mg/dL (0-10) Laboratory Tests 05/28/19 18:39 Laboratory Tests 05/28/19 18:39 (RADHIKA LEVINE MD) EKG EKG [] (DIAZ ZARATE APRN) Radiology/Procedures Radiology/Procedures []PROCEDURE: CT ABDOMEN PELVIS WO CONTRAST Exam: CT abdomen and pelvis without contrast INDICATION: Generalized abdominal pain for 3 days TECHNIQUE: Sequential axial images through the abdomen and pelvis obtained without IV contrast. Sagittal and coronal reformatted images were reconstructed from the axial data and reviewed. Comparisons: CT 10/04/2017 FINDINGS: Heart size is normal. No pericardial effusion. Linear bandlike opacities at the lung bases likely representing atelectasis. No pleural effusion. Evaluation of the solid organs is limited secondary to noncontrast technique. Liver, spleen, pancreas, and adrenals are unremarkable. Gallbladder is surgically absent. Kidneys demonstrate symmetric enhancement. No perinephric inflammation or hydronephrosis. No renal or ureteral calculi are identified. Bladder is incompletely distended and not well evaluated. Uterus is absent. No abnormal adnexal mass. Large and small bowel are unremarkable. No obstruction. No free intra-abdominal air or fluid. Appendix is not identified. Abdominal aorta has a normal course and caliber. No enlarged intra-abdominal lymph nodes are identified. No suspicious osseous lesions or acute fractures. IMPRESSION: No acute process identified within the abdomen or pelvis. Exposure: One or more of the following in the visualized dose reduction techniques were utilized for this examination: 1. Automated exposure control 2. Adjustment of the MA and/or KV according to patient size 3. Use of iterative of reconstructive technique Electronically signed by: Brent Chopra MD (05/28/2019 7:48 PM) [facility] DICTATED and SIGNED BY: BRENT CHOPRA MD DATE: 05/28/191947 (DIAZ ZARATE APRN) Course & Med Decision Making Course & Med Decision Making Pertinent Labs and Imaging studies reviewed. (See chart for details) This is a 54-year-old female patient who presents to the ED today complaining of chronic diarrhea, abdominal pain for 3 days of nausea. Labs are negative for any acute findings, CAT scan is negative. Discharged to home. Follow-up with PCP. (DIAZ ZARATE APRN) Dragon Disclaimer Dragon Disclaimer This electronic medical record was generated, in whole or in part, using a voice recognition dictation system. (DIAZ ZARATE APRN) Departure Departure Impression: Primary Impression: GERD (gastroesophageal reflux disease) Additional Impressions: Diarrhea UTI (urinary tract infection) Disposition: HOME, SELF-CARE Condition: STABLE Referrals: NELLIE DIAZ (PCP) follow up next week Patient Instructions: Abdominal Pain (Nonspecific), Diet for Gastroesophageal Reflux Disease, Child, Gastroesophageal Reflux Disease, Adult Additional Instructions: Please take your acid reflex medication as ordered. Please complete your antibiotics. Please follow up with your doctor next week Scripts Sulfamethoxazole/Trimethoprim (BACTRIM DS TABLET) 1 Each Tablet 1 TAB PO BID, #6 TAB Prov: DIAZ ZARATE APRN 05/28/19 Ondansetron (ONDANSETRON ODT) 4 Mg Tab.rapdis 1 TAB PO PRN Q6-8HRS, #16 TAB Prov: DIAZ ZARATE APRN 05/28/19 Problem Qualifiers DIAZ ZARATE APRN May 28, 2019 20:43 RADHIKA LEVINE MD May 29, 2019 04:02
== END 2019-05-28 20:50 | disposition home or self-care (01) ==
LOC: ER 17:44
DX: N39.0 Urinary tract infection, site not specified (principal); K21.9 Gastro-esophageal reflux disease without esophagitis; R19.7 Diarrhea, unspecified; E78.00 Pure hypercholesterolemia, unspecified; I13.0 Hypertensive heart and chronic kidney disease with heart failure and stage 1 through stage 4 chronic kidney disease, or unspecified chronic kidney disease; N18.9 Chronic kidney disease, unspecified; I50.9 Heart failure, unspecified; F17.210 Nicotine dependence, cigarettes, uncomplicated; F31.9 Bipolar disorder, unspecified; I25.10 Atherosclerotic heart disease of native coronary artery without angina pectoris; I25.2 Old myocardial infarction; Z76.5 Malingerer [conscious simulation]; E66.9 Obesity, unspecified; Z68.42 Body mass index [BMI] 45.0-49.9, adult; Z90.49 Acquired absence of other specified parts of digestive tract; Z90.710 Acquired absence of both cervix and uterus; Z98.51 Tubal ligation status; Z95.5 Presence of coronary angioplasty implant and graft; Z88.0 Allergy status to penicillin; Z88.1 Allergy status to other antibiotic agents; Z88.8 Allergy status to other drugs, medicaments and biological substances
CPT/HCPCS: 36415; 74176; 80053; 80307; 81001; 83690; 85025; 87086; 96361; 96374; 96375; 99285; G0480; J2405; J3490; J7030

== ENCOUNTER 2019-06-13 18:53 | Emergency (ER) | payer MEDICARE, OTHER ==
[~2019-06-13] VITALS: Ht 170.2 cm; Wt 141.1 kg
[~2019-06-13 18:53] MED LIST changes: +ONDA4TAB12 PO; +SULF1TAB24 PO
[2019-06-13 19:22] VITALS: BP 124/59
[2019-06-13] MEDS ORDERED: HYDR-3164 PO (20:25)
--- NOTE | 2019-06-13 20:25 | PHYS DOC ---
Past Medical History Past Medical History: Anemia, Anxiety, Bipolar, CAD, CHF, Depression, Fib romyalgia, GERD, Heart Disease, [place], Pancreatitis, Renal Failure, Sciatica, UTI, Other Additional Past Medical Histor: obesity, seasonal allergies, drug seeking behavior, neuropathy, ulcer Past Surgical History: Cholecystectomy, Hysterectomy, Tubal ligation, Other Additional Past Surgical Histo: L knee surgery, cardiac stent, ESOPHAGUS SX Alcohol Use: None Drug Use: None Adult General Chief Complaint Chief Complaint: LOWER BACK PAIN OR INJURY HPI HPI Patient is a 54 year old female who presents with about up out of a chair today and started having low back pain on the left lower side with a sharp shooting pain down the back of the left leg. Patient rates her pain 8 out of 10. Review of Systems Review of Systems Musculoskeletal: low back pain with sciatica or joint pain [] All other systems were reviewed and found to be within normal limits, except as documented in this note. Allergies Allergies Allergies Coded Allergies Type Severity Reaction Last Updated Verified Penicillins Allergy Intermediate HIVES 10/08/17 Yes clavulanic acid Allergy Intermediate Nausea 10/08/17 Yes duloxetine Allergy Intermediate Nausea and Vomiting 10/08/17 Yes varenicline Allergy Intermediate 10/08/17 Yes amoxicillin Adverse Reaction Intermediate Nausea 10/08/17 Yes Physical Exam Physical Exam Constitutional: Well developed, well nourished, no acute distress, non-toxic appearance. [] Abdomen: Bowel sounds normal, soft, no tenderness, no masses, no pulsatile masses. [] Skin: Warm, dry, no erythema, no rash. [] Back: Left lower back tenderness, no CVA tenderness. [] Extremities: No tenderness, no cyanosis, no clubbing, ROM intact, no edema. [] Neurologic: Alert and oriented X 3, normal motor function, normal sensory function, no focal deficits noted. [] Psychologic: Affect normal, judgement normal, mood normal. [] Current Patient Data Vital Signs Vital Signs Date Time Temp Pulse Resp B/P (MAP) Pulse Ox O2 Delivery O2 Flow Rate FiO2 06/13/19 19:22 98.2 79 18 124/59 (80) 95 Room Air 98.2 EKG EKG [] Radiology/Procedures Radiology/Procedures [] Course & Med Decision Making Course & Med Decision Making Ambulatory with a steady gait. No extremity edema. No CVA tenderness. Patient denies dysuria or abdominal pain. Left lower back tenderness. Equal strengths in all extremity joints. Ambulatory with a steady gait. Skin pink warm and dry. Vital signs is within normal limits. Patient denies any numbness or tingling. Pedal pulses strong and present. Patient is diagnosed with sciatica. Dragon Disclaimer Dragon Disclaimer This electronic medical record was generated, in whole or in part, using a voice recognition dictation system. Departure Departure Impression: Primary Impression: Low back pain Disposition: HOME, SELF-CARE Condition: STABLE Referrals: NELLIE DIAZ (PCP) Patient Instructions: Sciatica, Sciatica with [facility] Additional Instructions: Follow-up with primary care provider needed. Try heat or creams for aggravated nerves lidocaine. Take medication as prescribed. Scripts Methylprednisolone (MEDROL) 4 Mg Tab.ds.pk 1 PKG PO UD, #1 PKG Prov: SACHA MOSCOSO PATTERN REPAIR PERSON 06/13/19 Hydrocodone/Apap 5-325 (NORCO 5-325 TABLET) 1 Each Tablet 1 TAB PO PRN Q6HRS PRN for PAIN, #10 TAB 0 Refills Prov: SACHA MOSCOSO PATTERN REPAIR PERSON 06/13/19 Problem Qualifiers Primary Impression: Low back pain Chronicity: acute Back pain laterality: left Sciatica presence: with sciatica Sciatica laterality: sciatica of left side Qualified Codes: M54.42 - Lumbago with sciatica, left side SACHA MOSCOSO PATTERN REPAIR PERSON Jun 13, 2019 20:25
[2019-06-13] MEDS ORDERED: METH4TAB2 PO (20:27)
== END 2019-06-13 20:42 | disposition home or self-care (01) ==
LOC: ER 18:53
DX: M54.42 Lumbago with sciatica, left side (principal); F41.9 Anxiety disorder, unspecified; F31.9 Bipolar disorder, unspecified; I50.9 Heart failure, unspecified; I25.10 Atherosclerotic heart disease of native coronary artery without angina pectoris; K21.9 Gastro-esophageal reflux disease without esophagitis; I25.2 Old myocardial infarction; E66.9 Obesity, unspecified; Z90.49 Acquired absence of other specified parts of digestive tract; Z90.710 Acquired absence of both cervix and uterus; Z98.51 Tubal ligation status; Z88.0 Allergy status to penicillin; Z88.1 Allergy status to other antibiotic agents; Z88.8 Allergy status to other drugs, medicaments and biological substances
CPT/HCPCS: 99283

== ENCOUNTER 2019-06-29 17:55 | Inpatient (IN) | payer MEDICARE, OTHER ==
[~2019-06-29] VITALS: Ht 170.2 cm; Wt 131.7 kg
[~2019-06-29 17:55] MED LIST changes: -LAMO100T PO; +LAMO100T8 PO; +METH4TAB2 PO; +SIMV40TA18 PO; -SIMV40TA3 PO
--- NOTE | 2019-06-29 19:27 | PHYS DOC ---
Past Medical History Past Medical History: Anemia, Anxiety, Bipolar, CAD, CHF, Depression, Fibromyalgia, GERD, Heart Disease, Hypertension, FL, Pancreatitis, Renal Fa ilure, Sciatica, UTI, Other Additional Past Medical Histor: obesity,seasonal allergies,drug seeking behavior neuropathy,ulcer Past Surgical History: Cholecystectomy, Hysterectomy, Tubal ligation, Other Additional Past Surgical Histo: L knee surgery, cardiac stent, ESOPHAGUS SX Additional Information: 2 TO 3 CIGARETTES A DAY Alcohol Use: None Drug Use: None Adult General Chief Complaint Chief Complaint: DIARRHEA HPI HPI Patient is a 54 year old female with history of bipolar disorder, CHF, coronary artery disease, hypertension, fibromyalgia, frequent emergency room visits who presents with complaining of diarrhea. Patient states she had 1 day of diarrhea 4 days ago that improved but since yesterday morning has had frequent episodes of nonbloody diarrhea and 20 episodes of vomiting. Patient states she had 2 episodes of diarrhea yesterday and tubes 20 episodes of diarrhea today with mild upper abdominal cramping pain during episodes of vomiting. Patient states she was not able to eat anything and just had Gatorade. Patient complaining of decrease of urine output and denies chest pain, shortness of breath, sick contact, recent antibiotic use, poisoning. Patient states she had episodes of diarrhea that lasts for short time and usually responding to Imodium but she took 2 pills of Imodium today at 11 AM without change of her diarrhea. Review of Systems Review of Systems Constitutional: Denies fever or chills [] Eyes: Denies change in visual acuity, redness, or eye pain [] HENT: Denies nasal congestion or sore throat [] Respiratory: Denies cough or shortness of breath [] Cardiovascular: No additional information not addressed in HPI [] GI: Reports abdominal pain, nausea, vomiting, diarrhea [] : Denies dysuria or hematuria [] Musculoskeletal: Denies back pain or joint pain [] Integument: Denies rash or skin lesions [] Neurologic: Denies headache, focal weakness or sensory changes [] Endocrine: Denies polyuria or polydipsia [] All other systems were reviewed and found to be within normal limits, except as documented in this note. Current Medications Current Medications Current Medications Medications (Trade) Dose Ordered Sig/Dorian Start Time Stop Time Status Last Admin Dose Admin Ceftriaxone Sodium (Rocephin) 1 gm 1X ONCE 06/29/19 20:45 06/29/19 20:46 DC 06/29/19 21:09 1 GM Sodium Chloride 1,000 ml @ 1,000 mls/hr 1X ONCE 06/29/19 20:45 06/29/19 21:44 DC 06/29/19 20:49 1,000 MLS/HR Allergies Allergies Allergies Coded Allergies Type Severity Reaction Last Updated Verified Penicillins Allergy Intermediate HIVES 10/08/17 Yes clavulanic acid Allergy Intermediate Nausea 10/08/17 Yes duloxetine Allergy Intermediate Nausea and Vomiting 10/08/17 Yes amoxicillin Adverse Reaction Intermediate Nausea 10/08/17 Yes Physical Exam Physical Exam Constitutional: Well developed, well nourished, mild distress, non-toxic appearance, morbidly obese. [] HENT: Normocephalic, atraumatic. Eyes: PERRLA, EOMI, conjunctiva normal, no discharge. [] Neck: Normal range of motion, no tenderness, supple, no stridor. [] Cardiovascular:Heart rate regular rhythm, no murmur [] Lungs & Thorax: Bilateral breath sounds clear to auscultation [] Abdomen: Bowel sounds normal, soft, no tenderness, no masses, no pulsatile masses. [] Skin: Warm, dry, no erythema, no rash. [] Back: No tenderness, no CVA tenderness. [] Extremities: No tenderness, no cyanosis, no clubbing, ROM intact, no edema. [] Neurologic: Alert and oriented X 3, no focal deficits noted. [] Psychologic: Affect normal, judgement normal, mood normal. [] Current Patient Data Vital Signs Vital Signs Date Time Temp Pulse Resp B/P (MAP) Pulse Ox O2 Delivery O2 Flow Rate FiO2 06/29/19 20:55 83 17 117/63 (81) 95 Room Air 06/29/19 18:53 98.4 98.4 Lab Values Laboratory Tests Test 06/29/19 19:19 06/29/19 19:20 Urine Collection Type U cath Urine Color Allegra Urine Clarity Clear Urine pH 5.5 Urine Specific [place] >=1.030 Urine Protein >=300 mg/dL (NEG-TRACE) Urine Glucose (UA) Negative mg/dL (NEG) Urine Ketones (Stick) Negative mg/dL (NEG) Urine Blood Negative (NEG) Urine Nitrite Negative (NEG) Urine Bilirubin Small (NEG) Urine Urobilinogen Dipstick 0.2 mg/dL (0.2 mg/dL) Urine Leukocyte Esterase Negative (NEG) Urine RBC 0 /HPF (0-2) Urine WBC 1-4 /HPF (0-4) Urine Squamous Epithelial Cells Occ /LPF Urine Bacteria 0 /HPF (0-FEW) Urine Hyaline Casts Few /HPF Urine Mucus Mod /LPF Urine Opiates Screen Neg (NEG) Urine Methadone Screen Neg (NEG) Urine Barbiturates Neg (NEG) Urine Phencyclidine Screen Neg (NEG) Urine Amphetamine/Methamphetamine Neg (NEG) Urine Benzodiazepines Screen Neg (NEG) Urine Cocaine Screen Neg (NEG) Urine Cannabinoids Screen Neg (NEG) Urine Ethyl Alcohol Neg (NEG) White Blood Count 5.2 x10^3/uL (4.0-11.0) Red Blood Count 4.72 x10^6/uL (3.50-5.40) Hemoglobin 13.7 g/dL (12.0-15.5) Hematocrit 42.3 % (36.0-47.0) Mean Corpuscular Volume 90 fL (79-100) Mean Corpuscular Hemoglobin 29 pg (25-35) Mean Corpuscular Hemoglobin Concent 33 g/dL (31-37) Red Cell Distribution Width 16.2 % (11.5-14.5) H Platelet Count 281 x10^3/uL (140-400) Neutrophils (%) (Auto) 47 % (31-73) Lymphocytes (%) (Auto) 33 % (24-48) Monocytes (%) (Auto) 15 % (0-9) H Eosinophils (%) (Auto) 5 % (0-3) H Basophils (%) (Auto) 0 % (0-3) Neutrophils # (Auto) 2.4 x10^3/uL (1.8-7.7) Lymphocytes # (Auto) 1.7 x10^3/uL (1.0-4.8) Monocytes # (Auto) 0.8 x10^3/uL (0.0-1.1) Eosinophils # (Auto) 0.3 x10^3/uL (0.0-0.7) Basophils # (Auto) 0.0 x10^3/uL (0.0-0.2) Prothrombin Time 12.2 SEC (11.7-14.0) Prothrombin Time INR 0.9 (0.8-1.1) Sodium Level 146 mmol/L (136-145) H Potassium Level 3.8 mmol/L (3.5-5.1) Chloride Level 107 mmol/L (98-107) Carbon Dioxide Level 28 mmol/L (21-32) Anion Gap 11 (6-14) Blood Urea Nitrogen 24 mg/dL (7-20) H Creatinine 2.0 mg/dL (0.6-1.0) H Estimated GFR (Cockcroft-Gault) 26.1 BUN/Creatinine Ratio 12 (6-20) Glucose Level 98 mg/dL (70-99) Lactic Acid Level 2.4 mmol/L (0.4-2.0) H Calcium Level 9.0 mg/dL (8.5-10.1) Total Bilirubin 0.2 mg/dL (0.2-1.0) Aspartate Amino Transferase (AST) 33 U/L (15-37) Alanine Aminotransferase (ALT) 31 U/L (14-59) Alkaline Phosphatase 92 U/L (46-116) Total Protein 7.0 g/dL (6.4-8.2) Albumin 3.4 g/dL (3.4-5.0) Albumin/Globulin Ratio 0.9 (1.0-1.7) L Lipase 34 U/L (73-393) L Laboratory Tests 06/29/19 19:20 Laboratory Tests 06/29/19 19:20 EKG EKG [] Radiology/Procedures Radiology/Procedures [] Course & Med Decision Making Course & Med Decision Making Pertinent Labs reviewed. (See chart for details) Evaluation of patient in ER showed female patient with complaining of diarrhea and nausea and vomiting for several days. Patient had unremarkable physical exam except for morbid obesity. Patient had elevation of lactic acid and treatment for sepsis wasn't started. Patient requiring admission for further evaluation and treatment. Discussed with Dr. Corona who is in agreement with admission. Discussed findings and plan with patient and family, who acknowledge understandi ng and agreement. Dragon Disclaimer Dragon Disclaimer This electronic medical record was generated, in whole or in part, using a voice recognition dictation system. Departure Departure Impression: Primary Impression: Sepsis Additional Impressions: Acute gastroenteritis Morbid obesity Acute on chronic renal failure Disposition: ADMITTED INPATIENT (at 2136) Admitting Physician: NEGIN (Dr. Corona accepted admission at 2134) Condition: IMPROVED Referrals: NELLIE DIAZ (PCP) Date and Time of Reassessment Date: Jun 29, 2019 Time: 21:40 Fluid Challenge Is the fluid challenge complet: No IBW Target Volume Used: Yes BMI > 30: Yes Vital Signs Vital Signs: Vital Signs Date Time Temp Pulse Resp B/P (MAP) Pulse Ox O2 Delivery O2 Flow Rate FiO2 06/29/19 20:55 83 17 117/63 (81) 95 Room Air 06/29/19 18:53 98.4 98.4 Temperature Source: Oral Respirations Respiratory Pattern: Normal Cardiovascular Pulse Rhythm: Regular Heart: Nml rate, reg. rhythm Capillary Refil Capillary Refill: Rt Hand < 3 seconds Peripheral Pulse Pulse Location: Dorsalis Pedis Pulse Strength: Normal (2+) Pulse Assessment Method: Monitor Problem Qualifiers Primary Impression: Sepsis Sepsis type: sepsis due to unspecified organism Sepsis acute organ dysfunction status: unspecified Qualified Codes: A41.9 - Sepsis, unspecified organism Additional Impressions: Acute on chronic renal failure Acute renal failure type: unspecified Chronic kidney disease stage: unspecified stage Qualified Codes: N17.9 - Acute kidney failure, unspecified; N18.9 - Chronic kidney disease, unspecified BARULIO HARRIS MD Jun 29, 2019 19:27
[2019-06-29] MEDS ORDERED: IV NORMAL SALINE 1000ML BAG 1,000 ML IV SCH (19:30)
[2019-06-29 20:04] LABS: BILIRUBIN,URINE SMALL (NEG); CLARITY,URINE CLEAR; COLOR,URINE AMBER; NITRITE,URINE NEGATIVE (NEG); PH,URINE 5.5; PROTEIN,URINE >=300 mg/dL (NEG-TRACE); UROBILINOGEN,URINE 0.2 mg/dL (0.2 mg/dL)
[2019-06-29 20:05] LABS: BASO % 0 % (0-3); EOS # 0.3 x10^3/uL (0.0-0.7); EOS % 5 % (0-3); HEMATOCRIT 42.3 % (36.0-47.0); HEMOGLOBIN 13.7 g/dL (12.0-15.5); LYMPH # 1.7 x10^3/uL (1.0-4.8); LYMPH % 33 % (24-48); MEAN CORPUSCULAR HEMOGLOBIN 29 pg (25-35); MEAN CORPUSCULAR HGB CONC 33 g/dL (31-37); MEAN CORPUSCULAR VOLUME 90 fL (79-100); MONO # 0.8 x10^3/uL (0.0-1.1); MONO % 15 % (0-9); NEUT # 2.4 x10^3/uL (1.8-7.7); NEUT % 47 % (31-73); PLATELET COUNT 281 x10^3/uL (140-400); RED BLOOD COUNT 4.72 x10^6/uL (3.50-5.40); RED CELL DISTRIBUTION WIDTH 16.2 % (11.5-14.5); WHITE BLOOD COUNT 5.2 x10^3/uL (4.0-11.0)
[2019-06-29 20:13] LABS: PROTHROMBIN TIME PATIENT 12.2 SEC (11.7-14.0)
[2019-06-29 20:14] LABS: BACTERIA,URINE 0 /HPF (0-FEW); HYALINE CASTS, URINE FEW /HPF; RBC,URINE 0 /HPF (0-2); SQUAMOUS EPITHELIAL CELL,UR OCC /LPF
[2019-06-29 20:17] LABS: GFR 26.1; POTASSIUM 3.8 mmol/L (3.5-5.1)
[2019-06-29 20:23] LABS: ALBUMIN 3.4 g/dL (3.4-5.0); ALBUMIN/GLOBULIN RATIO 0.9 (1.0-1.7); TOTAL BILIRUBIN 0.2 mg/dL (0.2-1.0)
[2019-06-29 20:32] LABS: AMPHETAMINE/METHAMPHETAMINE NEG (NEG); BARBITURATES NEG (NEG); BENZODIAZEPINES NEG (NEG); CANNABINOIDS NEG (NEG); COCAINE NEG (NEG); METHADONE NEG (NEG); OPIATES NEG (NEG); PHENCYCLIDINE NEG (NEG)
[2019-06-29] MEDS ORDERED: IV NORMAL SALINE 1000ML BAG 1,000 ML IV ONE (20:45)
[2019-06-29] MEDS ORDERED: cefTRIAXone IV Push 1 GM VIAL. IVP ONE (20:45)
[2019-06-29 22:16] VITALS: BP 117/61
--- NOTE | 2019-06-29 22:18 | NUR ---
Pt states she can now tolerate chantix. She arrived to room 250 via bed from ER at approx 2200. She is a/o x4, no complaints of pain, ambulated with a steady gait to the restroom where she urinated clear terrell urine. No BM since arrival and states no BM in ER. Pt carries current med list, see med rec and states she was vaccinated for flu this May.
[2019-06-29] MEDS ORDERED: ONDANSETRON PF 4 MG/2 ML VIAL. IV PRN (22:45)
[2019-06-29] MEDS: IV NORMAL SALINE 1000ML BAG 1,000 ML IV SCH (22:45)
[2019-06-29] MEDS ORDERED: ONDA4TAB12 PO (23:07)
[2019-06-29] MEDS ORDERED: FURO40TA4 PO (23:07)
[2019-06-29] MEDS ORDERED: CITA40TA5 PO (23:07)
[2019-06-29] MEDS ORDERED: NITR0.4T22 SL (23:07)
[2019-06-29] MEDS ORDERED: CETI10TA16 PO (23:07)
[2019-06-29] MEDS ORDERED: LAMO200T6 PO (23:07)
[2019-06-29] MEDS ORDERED: OMEP40CA45 PO (23:07)
[2019-06-29] MEDS ORDERED: KETO5DRO4 OD (23:07)
[2019-06-29] MEDS ORDERED: ZOLP10TA4 PO (23:07)
[2019-06-29] MEDS ORDERED: ASCO500T3 PO (23:07)
[2019-06-29] MEDS ORDERED: VENTOLIN HFA18 GM INH (23:08)
[2019-06-29] MEDS ORDERED: NON FORMULARY ITEM (Zolpidem Tartrate 10 MG) PO PRN (23:30)
[2019-06-29] MEDS ORDERED: NITROGLYCERIN SUBLINGUAL 0.4 MG BOTTLE OF 25. SL PRN (23:30)
[2019-06-29] MEDS ORDERED: NON FORMULARY ITEM (Albuterol Sulfate (Ventolin Hfa Inhaler) 2 PUFF) INH PRN (23:30)
[2019-06-29] MEDS ORDERED: ACETAMINOPHEN 500 MG TABLET PO PRN (23:30)
[2019-06-29] MEDS ORDERED: ONDANSETRON ODT 4 MG TAB.RAPDIS. PO PRN (23:30)
[2019-06-29] MEDS ORDERED: KETOTIFEN FUMARATE 0.025% OPHTH SOLUTION BOTTLE. OD SCH (23:45)
[2019-06-30] MEDS: GABAPENTIN 300 MG CAPSULE. PO SCH ×2 (00:07→09:00)
[2019-06-30] MEDS: lamoTRIgine 100 MG TABLET. PO SCH ×2 (00:07→20:59)
[2019-06-30] MEDS: ZOLPIDEM 5 MG TABLET. PO PRN ×2 (00:07→21:01)
[2019-06-30] MEDS: PRAMIPEXOLE 0.25 MG TABLET. PO SCH ×2 (00:08→21:01)
[2019-06-30] MEDS: clonazePAM 0.5 MG TABLET PO SCH ×4 (00:08→21:01)
[2019-06-30] MEDS ORDERED: ALBUTEROL SULFATE 2.5 MG/3 ML NEBU. NEB PRN (00:15)
[2019-06-30 03:00] VITALS: BP 139/66
[2019-06-30] MEDS: IV NORMAL SALINE 1000ML BAG 1,000 ML IV SCH ×2 (06:45→14:45)
[2019-06-30 07:00] VITALS: BP 126/73
[2019-06-30] MEDS ORDERED: PANTOPRAZOLE 40 MG TABLET.DR. PO SCH (07:30)
[2019-06-30] MEDS: FUROSEMIDE 40 MG TABLET. PO SCH (09:00)
[2019-06-30] MEDS: KETOTIFEN FUMARATE 0.025% OPHTH SOLUTION BOTTLE. OD SCH ×2 (09:00→21:00)
[2019-06-30] MEDS ORDERED: NON FORMULARY ITEM (Omeprazole 1 CAP) PO SCH (09:00)
[2019-06-30 10:33] VITALS: BP 132/61
--- NOTE | 2019-06-30 11:49 | PDOC2 ---
GI CONSULT Reason For Consult: Gastroenteritis HPI: HPI: 54 y/o female admitted through ER. Has had three episodes of n/v since the beginning of May - seen here int he ER once, then was seen at (reports CT was normal and "they gave me the cocktail"), and then returned here yesterday except this time main concern is diarrhea. Denies precipitating events (no sick contacts, no recent travel, no suspicious food intake, no change in medication, no recent atbx use). First denies n/v, then says she's not eating because of n/v. Initially denies pain, then says she has some RUQ discomfort. Too many stools to count at home, none here. Denies bleeding. H/o GERD on PPI QD. No dysphagia. 20 pound unintentional weight loss x 6 months. Thinks appetite is stable. Has an appointment w/ GI @ in Aug - "can't wait that long because I get sick every two weeks and nobody does anything." Ibuprofen PRN. EGD in 2015: reflux esophagitis, minimal esophageal narrowing, patchy duodenitis. Colonoscopy in 2015: normal to ascending colon. Barium enema 2015: negative. S/p cholecystectomy. Hepatic steatosis on abd MRI in 2015. H/o elevated lipase w/ normal CA19-9 - recommendation for EUS in the past - she says "I have no idea what all they did." EGD 2017: partly healed reflux esophagitis (unclear baseline), bile gastritis, normal duodenum. Advised to take sucralfate in addition to PPI then. CT A/P w/o contrast 05/28/19: no acute process identified within the abdomen or pelvis. PMH: PMH: CAD, HTN, COPD, anxiety, depression, bipolar, gout, allergic rhinitis, CKD hysterectomy, tubal ligation, knee surgery FH: Family History: CAD Social History: Smoke: <1 pack per day ALCOHOL: none Drugs: None ROS: GEN: Denies fevers, chills, sweats HEENT: Denies blurred vision, sore throat CV: Denies chest pain RESP: Denies shortness of air, cough GI: Per HPI : Denies hematuria, dysuria ENDO: +weight loss NEURO: Denies confusion, dizziness MSK: Denies weakness, joint pain/swelling SKIN: Denies jaundice, pruritus Vitals: Vitals: Vital Signs Date Time Temp Pulse Resp B/P (MAP) Pulse Ox O2 Delivery O2 Flow Rate FiO2 06/30/19 10:33 97.3 65 18 132/61 (84) 95 Nasal Cannula 2.0 97.3 Labs: Labs: Laboratory Tests Test 06/29/19 19:19 06/29/19 19:20 06/29/19 22:57 Urine Collection Type U cath Urine Color Allegra Urine Clarity Clear Urine pH 5.5 Urine Specific [place] >=1.030 Urine Protein >=300 mg/dL (NEG-TRACE) Urine Glucose (UA) Negative mg/dL (NEG) Urine Ketones (Stick) Negative mg/dL (NEG) Urine Blood Negative (NEG) Urine Nitrite Negative (NEG) Urine Bilirubin Small (NEG) Urine Urobilinogen Dipstick 0.2 mg/dL (0.2 mg/dL) Urine Leukocyte Esterase Negative (NEG) Urine RBC 0 /HPF (0-2) Urine WBC 1-4 /HPF (0-4) Urine Squamous Epithelial Cells Occ /LPF Urine Bacteria 0 /HPF (0-FEW) Urine Hyaline Casts Few /HPF Urine Mucus Mod /LPF Urine Opiates Screen Neg (NEG) Urine Methadone Screen Neg (NEG) Urine Barbiturates Neg (NEG) Urine Phencyclidine Screen Neg (NEG) Urine Amphetamine/Methamphetamine Neg (NEG) Urine Benzodiazepines Screen Neg (NEG) Urine Cocaine Screen Neg (NEG) Urine Cannabinoids Screen Neg (NEG) Urine Ethyl Alcohol Neg (NEG) White Blood Count 5.2 x10^3/uL (4.0-11.0) Red Blood Count 4.72 x10^6/uL (3.50-5.40) Hemoglobin 13.7 g/dL (12.0-15.5) Hematocrit 42.3 % (36.0-47.0) Mean Corpuscular Volume 90 fL (79-100) Mean Corpuscular Hemoglobin 29 pg (25-35) Mean Corpuscular Hemoglobin Concent 33 g/dL (31-37) Red Cell Distribution Width 16.2 % (11.5-14.5) Platelet Count 281 x10^3/uL (140-400) Neutrophils (%) (Auto) 47 % (31-73) Lymphocytes (%) (Auto) 33 % (24-48) Monocytes (%) (Auto) 15 % (0-9) Eosinophils (%) (Auto) 5 % (0-3) Basophils (%) (Auto) 0 % (0-3) Neutrophils # (Auto) 2.4 x10^3/uL (1.8-7.7) Lymphocytes # (Auto) 1.7 x10^3/uL (1.0-4.8) Monocytes # (Auto) 0.8 x10^3/uL (0.0-1.1) Eosinophils # (Auto) 0.3 x10^3/uL (0.0-0.7) Basophils # (Auto) 0.0 x10^3/uL (0.0-0.2) Prothrombin Time 12.2 SEC (11.7-14.0) Prothromb Time International Ratio 0.9 (0.8-1.1) Sodium Level 146 mmol/L (136-145) Potassium Level 3.8 mmol/L (3.5-5.1) Chloride Level 107 mmol/L (98-107) Carbon Dioxide Level 28 mmol/L (21-32) Anion Gap 11 (6-14) Blood Urea Nitrogen 24 mg/dL (7-20) Creatinine 2.0 mg/dL (0.6-1.0) Estimated GFR (Cockcroft-Gault) 26.1 BUN/Creatinine Ratio 12 (6-20) Glucose Level 98 mg/dL (70-99) Lactic Acid Level 2.4 mmol/L (0.4-2.0) 0.8 mmol/L (0.4-2.0) Calcium Level 9.0 mg/dL (8.5-10.1) Total Bilirubin 0.2 mg/dL (0.2-1.0) Aspartate Amino Transf (AST/SGOT) 33 U/L (15-37) Alanine Aminotransferase (ALT/SGPT) 31 U/L (14-59) Alkaline Phosphatase 92 U/L (46-116) Total Protein 7.0 g/dL (6.4-8.2) Albumin 3.4 g/dL (3.4-5.0) Albumin/Globulin Ratio 0.9 (1.0-1.7) Lipase 34 U/L (73-393) Allergies: Coded Allergies: Penicillins (Verified Allergy, Intermediate, HIVES, 10/08/17) clavulanic acid (Verified Allergy, Intermediate, Nausea, 10/08/17) duloxetine (Verified Allergy, Intermediate, Nausea and Vomiting, 10/08/17) amoxicillin (Verified Adverse Reaction, Intermediate, Nausea, 10/08/17) Medications: Current Medications Medications (Trade) Dose Ordered Sig/Dorian Route PRN Reason Start Time Stop Time Status Last Admin Dose Admin Sodium Chloride 1,000 ml @ 1,000 mls/hr Q1H IV 06/29/19 19:30 06/29/19 20:29 DC 06/29/19 19:32 Sodium Chloride 1,000 ml @ 1,000 mls/hr 1X ONCE IV 06/29/19 20:45 06/29/19 21:44 DC 06/29/19 20:49 Ceftriaxone Sodium (Rocephin) 1 gm 1X ONCE IVP 06/29/19 20:45 06/29/19 20:46 DC 06/29/19 21:09 Ondansetron HCl (Zofran) 4 mg PRN Q8HRS PRN IV NAUSEA/VOMITING 06/29/19 22:45 06/30/19 22:44 06/30/19 08:14 Clonazepam (KlonoPIN) 0.5 mg TID PO 06/29/19 22:45 06/30/19 00:08 Pramipexole Dihydrochloride (miraPEX) 0.5 mg HS PO 06/29/19 23:45 06/30/19 00:08 Gabapentin (Neurontin) 600 mg TID PO 06/29/19 23:45 06/30/19 00:07 Lamotrigine (LaMICtal) 200 mg HS PO 06/29/19 23:45 06/30/19 00:07 Zolpidem Tartrate (Ambien) 5 mg PRN QHS PRN PO INSOMNIA,MRX1 IF NEEDED 06/29/19 23:45 06/30/19 00:07 Imaging: Imaging: - PE: GEN: NAD - was asleep HEENT: Atraumatic, PERRL LUNGS: CTAB HEART: RRR ABD: NABS, S/NT, obese EXTREMITY: No edema SKIN: No rashes, no jaundice NEURO/PSYCH: A & O 3 A/P: A/P: Recurrent n/v, weight loss Diarrhea GERD - on PPI CRC screen - incomplete colonoscopy 2014 followed by negative barium enema S/p cholecystectomy Hepatic steatosis H/o elevated lipase - EUS @ [facility] discussed in the past -- No abd imaging this admission, check x-ray. ?GES Continue PPI. Check C Diff if diarrhea recurs. NAKIA CARRILLO Jun 30, 2019 11:49
[2019-06-30] MEDS: amLODIPine BESYLATE 5 MG TABLET PO SCH (13:00)
[2019-06-30] MEDS: CETIRIZINE HCL 10 MG TABLET. PO SCH (13:00)
[2019-06-30] MEDS: ASPIRIN ENTERIC COATED 81 MG TABLET.DR. PO SCH (13:00)
[2019-06-30] MEDS: CARVEDILOL 6.25 MG TABLET. PO SCH ×2 (13:02→21:01)
[2019-06-30] MEDS: CITALOPRAM 20 MG TABLET. PO SCH (13:02)
--- NOTE | 2019-06-30 13:34 | HP ---
ADMIT DATE: 06/30/2019 CHIEF COMPLAINT: Nausea, vomiting, abdominal pain, diarrhea. HISTORY OF PRESENT ILLNESS: The patient is a pleasant 54-year-old female well known to our service. She states she has been having nausea, vomiting and some diarrhea. She has been to the ER a couple of times. She was even seen at and was given a GI cocktail, which helped briefly, but then she feels bad again. She complains of some right upper quadrant pain, but already has a cholecystectomy. I discussed the case with ER physician. We are going to admit the patient and consult GI. PAST MEDICAL HISTORY: Cholecystectomy; EGD, which showed reflux and esophageal narrowing and patchy duodenitis. Colonoscopy was normal. Barium enema was negative. Hepatic steatosis on an MRI that was done in 2014, pancreatitis, CAD, hypertension, COPD, anxiety, depression, bipolar, gout, allergic rhinitis, chronic kidney disease, hysterectomy, tubal ligation and knee surgery. ALLERGIES: PENICILLIN, AMOXICILLIN AND DULOXETINE. FAMILY HISTORY: Coronary artery disease. SOCIAL HISTORY: She does not drink, smoke or take drugs. MEDICATIONS: Reviewed, please refer to the MRAD. REVIEW OF SYSTEMS: GENERAL: No history of weight change, weakness or fevers. SKIN: No bruising, hair changes or rashes. EYES: No blurred, double or loss of vision. NOSE AND THROAT: No history of nosebleeds, hoarseness or sore throat. HEART: No history of palpitations, chest pain or shortness of breath on exertion. LUNGS: Denies cough, hemoptysis, wheezing or shortness of breath. GASTROINTESTINAL: The patient complains of abdominal pain, nausea, vomiting and diarrhea. GENITOURINARY: No history of frequency, urgency, hesitancy or nocturia. NEUROLOGIC: Denies history of numbness, tingling, tremor or weakness. PSYCHIATRIC: No history of panic, anxiety or depression. ENDOCRINE: No history of heat or cold intolerance, polyuria or polydipsia. EXTREMITIES: Denies muscle weakness, joint pain, pain on walking or stiffness. PHYSICAL EXAMINATION: VITALS: Within normal limits and are stable. GENERAL: No apparent distress. Alert and oriented. HEENT: Head is normocephalic, atraumatic, pupils were equally round and reactive to light and accommodation. NECK: Supple, no JVD, no thyromegaly was noted. LUNGS: Clear to auscultation in all lung head without rhonchi or wheezing. HEART: RRR, S1, S2 present. Peripheral pulses intact, no obvious murmurs were noted. ABDOMEN: Soft, nontender. Positive bowel sounds no organomegaly, normal bowel sounds. EXTREMITIES: Without any cyanosis, clubbing, or edema. Pedal pulses intact, Homans sign is negative. NEUROLOGIC: Normal speech, normal tone. A & O x 3, moves all extremities, no obvious focal deficits. PSYCHIATRIC: Normal affect, normal mood. Stable. SKIN: No ulcerations or rashes, good skin turgor, no jaundice. VASCULAR: Good capillary refill, neurovascular bundle appears to be intact. LABORATORY DATA: Hematology is normal. Electrolytes normal except for a sodium of 146, BUN 24 and creatinine of 2. INR is 0.9. Drug screen negative. Urinalysis negative. IMAGING: Pending. ASSESSMENT AND PLAN: Abdominal pain, nausea, vomiting and diarrhea. The patient has been admitted. We will consult GI. IV fluids, p.r.n. Zofran. Home medications, deep venous thrombosis prophylaxis. Full code. JOSE ALVAREZ DO DR: ROSA/gabriel JOB#: [id number] / [id number]
[2019-06-30 14:21] VITALS: BP 99/57
--- NOTE | 2019-06-30 14:22 | NUR ---
SS following for discharge planning. SS reviewed pt chart. Pt is from home and is currently requiring oxygen. SS will continue to follow for discharge planning.
[2019-06-30] MEDS ORDERED: PROCHLORPERAZINE 10 MG/2 ML VIAL. IM PRN (15:30)
[2019-06-30] MEDS: GABAPENTIN 400 MG CAPSULE. PO SCH ×2 (15:47→21:00)
[2019-06-30] MEDS: PROCHLORPERAZINE 10 MG/2 ML VIAL. IV PRN (15:55)
--- NOTE | 2019-06-30 16:46 | RAD ---
Acute abdominal series. 06/30/2019 3:26 PM Indication: Nausea, vomiting, diarrhea Comparison Study: CT of the abdomen, May 28, 2019 Discussion: 6 mm nodular opacity projects over the right inferior lung. There is no pleural effusion or pneumothorax. No focal infiltrate is seen. The cardiomediastinal silhouette and pulmonary vasculature are within normal limits. No pneumoperitoneum is identified. The bowel gas pattern is nonobstructive. No pathologic calcifications are identified in the abdomen. No acute osseous abnormalities are seen. Prior cholecystectomy noted. Impression: 1. Nonspecific nonobstructive bowel gas pattern 2. 6 mm nodule, right lung base. Consider CT chest for further evaluation. Electronically signed by: Jaime Briones MD (06/30/2019 4:43 PM) [id number]
[2019-06-30 20:57] VITALS: BP 120/64
[2019-06-30] MEDS: ASCORBIC ACID 500 MG TABLET PO SCH (20:59)
[2019-06-30 23:11] VITALS: BP 124/66
[2019-07-01] MEDS: PROCHLORPERAZINE 10 MG/2 ML VIAL. IV PRN ×2 (00:18→13:14)
[2019-07-01 06:05] VITALS: BP 118/56
[2019-07-01] MEDS ORDERED: PANTOPRAZOLE IV PUSH 40 MG VIAL. IVP SCH (07:30)
[2019-07-01] MEDS: CARVEDILOL 6.25 MG TABLET. PO SCH ×2 (08:00→16:05)
[2019-07-01] MEDS: KETOTIFEN FUMARATE 0.025% OPHTH SOLUTION BOTTLE. OD SCH ×2 (09:00→21:00)
[2019-07-01] MEDS: clonazePAM 0.5 MG TABLET PO SCH ×3 (09:00→22:20)
[2019-07-01] MEDS: FUROSEMIDE 40 MG TABLET. PO SCH (09:00)
[2019-07-01] MEDS: GABAPENTIN 400 MG CAPSULE. PO SCH ×3 (09:00→22:20)
[2019-07-01 10:42] VITALS: BP 134/67
--- NOTE | 2019-07-01 11:29 | PDOC ---
Subjective: Subjective: Feels the same. Has been down for first part of GES. Objective: Objective: D/w nurse - requests Compazine every 8 hours. Vital Signs: Vital Signs Date Time Temp Pulse Resp B/P (MAP) Pulse Ox O2 Delivery O2 Flow Rate FiO2 07/01/19 10:42 98.0 71 16 134/67 (89) 93 Nasal Cannula 2.0 98.0 Labs: BLOOD CULTURE Preliminary NO GROWTH AFTER 1 DAY Imaging: [facility] 06/30 Impression: 1. Nonspecific nonobstructive bowel gas pattern 2. 6 mm nodule, right lung base. Consider CT chest for further evaluation. PE: GEN: NAD LUNGS: NC 2L HEART: RRR ABD: S/ND/NT NEURO/PSYCH: A & O 3 A/P: Recurrent n/v -- Await GES. Can ADAT when complete. Continue PPI. ANKIA CARRILLO Jul 01, 2019 11:29
--- NOTE | 2019-07-01 12:51 | RAD ---
EXAM: Nuclear gastric emptying scan. HISTORY: Nausea/vomiting. COMPARISON: None. TECHNIQUE: Serial static images were obtained over the stomach following oral administration of 2 mCi of 99m-Tc sulfur colloid in an egg based meal. FINDINGS: The stomach appears normal in contour. There is clearance of activity into the small bowel. The remaining fraction of gastric activity is as follows. 1 hour 69% (normal range 34.8-91%) 2 hour 45% (normal range 2.7-60%) 3 hour 28th% (normal range 0.5-28%) 4 hour 15% (normal range 0-10%) IMPRESSION: 1. Delayed gastric emptying in the late phase. Electronically signed by: Trung Moore MD (07/01/2019 12:48 PM) [facility]
[2019-07-01] MEDS: CITALOPRAM 20 MG TABLET. PO SCH (13:11)
[2019-07-01] MEDS: ASPIRIN ENTERIC COATED 81 MG TABLET.DR. PO SCH (13:11)
[2019-07-01] MEDS: amLODIPine BESYLATE 5 MG TABLET PO SCH (13:11)
[2019-07-01] MEDS: CETIRIZINE HCL 10 MG TABLET. PO SCH (13:11)
--- NOTE | 2019-07-01 14:17 | PDOC ---
[employer] PROGRESS NOTE Chief Complaint Chief Complaint Abdominal pain, nausea, vomiting and diarrhea History of Present Illness History of Present Illness 07/01/2019 Pt was seen and examined. Pt was about to receive a gastric emptying study upon exam. Reports no acute complaints, and eagerness to complete the study. Vitals/I&O Vitals/I&O: Vital Signs Date Time Temp Pulse Resp B/P (MAP) Pulse Ox O2 Delivery O2 Flow Rate FiO2 07/01/19 13:11 71 134/67 07/01/19 10:42 98.0 16 93 Nasal Cannula 2.0 98.0 I & O 06/30/19 06/30/19 07/01/19 15:00 23:00 07:00 Intake Total 1000 ml 180 ml Output Total 700 ml 450 ml Balance 300 ml -270 ml Physical Exam General: Alert, Oriented X3, Cooperative Heart: Regular rate Lungs: Clear, Wheezing, Other Abdomen: Normal bowel sounds Extremities: No clubbing, No cyanosis Skin: No rashes, No breakdown Review of Systems Review of Systems: Denies CP Denies SOB Admits Recurrent Diarrhea Assessment and Plan Assessmemt and Plan Problems Medical Problems: (1) Acute gastroenteritis Status: Acute (2) Acute on chronic renal failure Status: Acute (3) Morbid obesity Status: Acute (4) Sepsis Status: Acute Abdominal pain, nausea, vomiting and diarrhea Plan: 1) Gastric emptying study displayed delayed gastric emptying in the late phase, await GI recommendations on possible tx 2) Consider chest ct to further evaluate chest mass discovered on upper gi series 3) Daily labs 4) PT/OT 5) DVT prophylaxis Comment Review of Relevant I have reviewed the following items holden (where applicable) has been applied. Medications: Current Medications Medications (Trade) Dose Ordered Sig/Dorian Route PRN Reason Start Time Stop Time Status Last Admin Dose Admin Ascorbic Acid (Vitamin C) 500 mg HS PO 06/30/19 21:00 06/30/19 20:59 Prochlorperazine Edisylate (Compazine) 10 mg PRN Q8HRS PRN IV NAUSEA/VOMITING 06/30/19 16:00 07/01/19 13:14 JOSE ALVAREZ III DO Jul 01, 2019 14:17
[2019-07-01 14:19] VITALS: BP 125/65
[2019-07-01] MEDS: METOCLOPRAMIDE HCL 10 MG/2 ML VIAL. IVP SCH ×2 (16:05→22:19)
[2019-07-01 19:02] VITALS: BP 113/74
[2019-07-01] MEDS: PRAMIPEXOLE 0.25 MG TABLET. PO SCH (22:19)
[2019-07-01] MEDS: ASCORBIC ACID 500 MG TABLET PO SCH (22:19)
[2019-07-01] MEDS: lamoTRIgine 100 MG TABLET. PO SCH (22:19)
[2019-07-01] MEDS: ZOLPIDEM 5 MG TABLET. PO PRN (22:20)
[2019-07-01 23:06] VITALS: BP 114/60
[2019-07-02 02:50] VITALS: BP 110/79
[2019-07-02 05:48] LABS: BASO % 1 % (0-3); EOS # 0.2 x10^3/uL (0.0-0.7); EOS % 5 % (0-3); HEMATOCRIT 40.6 % (36.0-47.0); HEMOGLOBIN 13.1 g/dL (12.0-15.5); LYMPH % 42 % (24-48); MEAN CORPUSCULAR HEMOGLOBIN 29 pg (25-35); MEAN CORPUSCULAR HGB CONC 32 g/dL (31-37); MEAN CORPUSCULAR VOLUME 90 fL (79-100); MONO # 0.4 x10^3/uL (0.0-1.1); MONO % 8 % (0-9); NEUT # 2.1 x10^3/uL (1.8-7.7); NEUT % 44 % (31-73); PLATELET COUNT 284 x10^3/uL (140-400); RED BLOOD COUNT 4.54 x10^6/uL (3.50-5.40); RED CELL DISTRIBUTION WIDTH 15.6 % (11.5-14.5); WHITE BLOOD COUNT 4.8 x10^3/uL (4.0-11.0)
[2019-07-02 06:06] LABS: ALBUMIN 3.3 g/dL (3.4-5.0); CALCIUM 8.9 mg/dL (8.5-10.1); CREATININE 1.5 mg/dL (0.6-1.0); GFR 36.3; TOTAL BILIRUBIN 0.2 mg/dL (0.2-1.0); TOTAL PROTEIN 6.5 g/dL (6.4-8.2)
[2019-07-02 07:00] VITALS: BP 146/73
[2019-07-02] MEDS ORDERED: PANTOPRAZOLE 40 MG TABLET.DR. PO SCH (07:30)
[2019-07-02] MEDS: GABAPENTIN 400 MG CAPSULE. PO SCH ×2 (08:33→13:49)
[2019-07-02] MEDS: CETIRIZINE HCL 10 MG TABLET. PO SCH (08:33)
[2019-07-02] MEDS: CITALOPRAM 20 MG TABLET. PO SCH (08:33)
[2019-07-02] MEDS: clonazePAM 0.5 MG TABLET PO SCH ×2 (08:33→13:49)
[2019-07-02] MEDS: ASPIRIN ENTERIC COATED 81 MG TABLET.DR. PO SCH (08:34)
[2019-07-02] MEDS: amLODIPine BESYLATE 5 MG TABLET PO SCH (08:34)
[2019-07-02] MEDS: CARVEDILOL 6.25 MG TABLET. PO SCH ×2 (08:35→16:34)
[2019-07-02] MEDS: METOCLOPRAMIDE HCL 10 MG/2 ML VIAL. IVP SCH (08:35)
[2019-07-02] MEDS: PROCHLORPERAZINE 10 MG/2 ML VIAL. IV PRN (08:36)
[2019-07-02] MEDS: FUROSEMIDE 40 MG TABLET. PO SCH (08:36)
[2019-07-02] MEDS: KETOTIFEN FUMARATE 0.025% OPHTH SOLUTION BOTTLE. OD SCH (08:36)
--- NOTE | 2019-07-02 09:45 | PDOC ---
Subjective: Subjective: Tolerating diet w/o n/v, wants to go home today, says she's having regular food for lunch. Objective: Objective: Per nurse - plans for regular diet and possible DC - Dr. Lee left Rx for Reglan tabs. Returned to room yesterday to discuss GES and treatment including gastroparesis diet and trial of Reglan (including potential side effects/black box warning). Vital Signs: Vital Signs Date Time Temp Pulse Resp B/P (MAP) Pulse Ox O2 Delivery O2 Flow Rate FiO2 07/02/19 08:35 76 146/73 07/02/19 07:00 98.1 16 95 Room Air 98.1 07/02/19 02:50 2.0 Labs: Laboratory Tests Test 07/02/19 05:06 White Blood Count 4.8 x10^3/uL Red Blood Count 4.54 x10^6/uL Hemoglobin 13.1 g/dL Hematocrit 40.6 % Mean Corpuscular Volume 90 fL Mean Corpuscular Hemoglobin 29 pg Mean Corpuscular Hemoglobin Concent 32 g/dL Red Cell Distribution Width 15.6 % Platelet Count 284 x10^3/uL Neutrophils (%) (Auto) 44 % Lymphocytes (%) (Auto) 42 % Monocytes (%) (Auto) 8 % Eosinophils (%) (Auto) 5 % Basophils (%) (Auto) 1 % Neutrophils # (Auto) 2.1 x10^3/uL Lymphocytes # (Auto) 2.0 x10^3/uL Monocytes # (Auto) 0.4 x10^3/uL Eosinophils # (Auto) 0.2 x10^3/uL Basophils # (Auto) 0.0 x10^3/uL Sodium Level 146 mmol/L Potassium Level 4.0 mmol/L Chloride Level 108 mmol/L Carbon Dioxide Level 29 mmol/L Anion Gap 9 Blood Urea Nitrogen 10 mg/dL Creatinine 1.5 mg/dL Estimated GFR (Cockcroft-Gault) 36.3 BUN/Creatinine Ratio 7 Glucose Level 95 mg/dL Calcium Level 8.9 mg/dL Total Bilirubin 0.2 mg/dL Aspartate Amino Transf (AST/SGOT) 32 U/L Alanine Aminotransferase (ALT/SGPT) 30 U/L Alkaline Phosphatase 84 U/L Total Protein 6.5 g/dL Albumin 3.3 g/dL Albumin/Globulin Ratio 1.0 Imaging: GES 11/6 1 hour 69% (normal range 34.8-91%) 2 hour 45% (normal range 2.7-60%) 3 hour 28th% (normal range 0.5-28%) 4 hour 15% (normal range 0-10%) IMPRESSION: 1. Delayed gastric emptying in the late phase. PE: GEN: NAD - in restroom, spoke through door NEURO/PSYCH: A & O 3 A/P: Delayed gastric emptying -- Change to Reglan susp, continue PPI. Plans to advance diet and DC - l eft Rx for Reglan susp. NAKIA CARRILLO Jul 02, 2019 09:45
[2019-07-02] MEDS ORDERED: PRAMIPEXOLE 0.25 MG TABLET. PO ONE (11:00)
[2019-07-02 11:08] VITALS: BP 108/80
[2019-07-02] MEDS: METOCLOPRAMIDE ORAL SOLN 10 MG/10 ML SOLUTION. PO SCH ×2 (11:15→16:34)
--- NOTE | 2019-07-02 12:47 | PDOC ---
[facility] PROGRESS NOTE Chief Complaint Chief Complaint Abdominal pain, nausea, vomiting and diarrhea Delayed gastric emptying in the late phase History of Present Illness History of Present Illness 07/02/2019 Pt was seen and examined. Pt was complaining of restless legs on exam. She report that she is otherwise ready for discharge and would like to go home. 07/01/2019 Pt was seen and examined. Pt was about to receive a gastric emptying study upon exam. Reports no acute complaints, and eagerness to complete the study. Vitals/I&O Vitals/I&O: Vital Signs Date Time Temp Pulse Resp B/P (MAP) Pulse Ox O2 Delivery O2 Flow Rate FiO2 07/02/19 11:08 98.1 67 18 108/80 (89) 92 Room Air 98.1 07/02/19 08:00 2.0 I & O 07/01/19 07/01/19 07/02/19 15:00 23:00 07:00 Intake Total 0 ml 800 ml 2000 ml Output Total 600 ml 200 ml Balance -600 ml 600 ml 2000 ml Physical Exam General: Alert, Oriented X3, Cooperative Heart: Regular rate Lungs: Clear, Wheezing, Other Abdomen: Normal bowel sounds Extremities: No clubbing, No cyanosis Skin: No rashes, No breakdown Labs Labs: Laboratory Tests Test 07/02/19 05:06 White Blood Count 4.8 x10^3/uL (4.0-11.0) Red Blood Count 4.54 x10^6/uL (3.50-5.40) Hemoglobin 13.1 g/dL (12.0-15.5) Hematocrit 40.6 % (36.0-47.0) Mean Corpuscular Volume 90 fL (79-100) Mean Corpuscular Hemoglobin 29 pg (25-35) Mean Corpuscular Hemoglobin Concent 32 g/dL (31-37) Red Cell Distribution Width 15.6 % (11.5-14.5) Platelet Count 284 x10^3/uL (140-400) Neutrophils (%) (Auto) 44 % (31-73) Lymphocytes (%) (Auto) 42 % (24-48) Monocytes (%) (Auto) 8 % (0-9) Eosinophils (%) (Auto) 5 % (0-3) Basophils (%) (Auto) 1 % (0-3) Neutrophils # (Auto) 2.1 x10^3/uL (1.8-7.7) Lymphocytes # (Auto) 2.0 x10^3/uL (1.0-4.8) Monocytes # (Auto) 0.4 x10^3/uL (0.0-1.1) Eosinophils # (Auto) 0.2 x10^3/uL (0.0-0.7) Basophils # (Auto) 0.0 x10^3/uL (0.0-0.2) Sodium Level 146 mmol/L (136-145) Potassium Level 4.0 mmol/L (3.5-5.1) Chloride Level 108 mmol/L (98-107) Carbon Dioxide Level 29 mmol/L (21-32) Anion Gap 9 (6-14) Blood Urea Nitrogen 10 mg/dL (7-20) Creatinine 1.5 mg/dL (0.6-1.0) Estimated GFR (Cockcroft-Gault) 36.3 BUN/Creatinine Ratio 7 (6-20) Glucose Level 95 mg/dL (70-99) Calcium Level 8.9 mg/dL (8.5-10.1) Total Bilirubin 0.2 mg/dL (0.2-1.0) Aspartate Amino Transf (AST/SGOT) 32 U/L (15-37) Alanine Aminotransferase (ALT/SGPT) 30 U/L (14-59) Alkaline Phosphatase 84 U/L (46-116) Total Protein 6.5 g/dL (6.4-8.2) Albumin 3.3 g/dL (3.4-5.0) Albumin/Globulin Ratio 1.0 (1.0-1.7) Review of Systems Review of Systems: Denies CP. Denies SOB Denies N/V/D Admits restless legs. Assessment and Plan Assessmemt and Plan Problems Medical Problems: (1) Acute gastroenteritis Status: Acute (2) Acute on chronic renal failure Status: Acute (3) Morbid obesity Status: Acute (4) Sepsis Status: Acute Delayed gastric emptying in the late phase Abdominal pain, nausea, vomiting and diarrhea Plan: 1) Probable D/C today if ok with GI 2) Wrote patient a prescription for Reglan 10mg QID, told patient she can decrease her dose if her restless legs continue to bother her 3) Wrote patient a prescription for O2 by nasal canula 4) Full code 5) Daily labs 6) PT/OT Comment Review of Relevant I have reviewed the following items holden (where applicable) has been applied. Medications: Current Medications Medications (Trade) Dose Ordered Sig/Dorian Route PRN Reason Start Time Stop Time Status Last Admin Dose Admin Pantoprazole Sodium (Protonix) 40 mg DAILYAC PO 07/02/19 07:30 07/02/19 08:34 Metoclopramide HCl (Reglan Vial) 10 mg QIDACHS IVP 07/01/19 16:30 07/02/19 09:45 DC 07/02/19 08:35 Metoclopramide HCl (Reglan Oral Solution) 5 mg QIDACHS PO 07/02/19 11:30 07/02/19 11:15 Pramipexole Dihydrochloride (miraPEX) 0.5 mg 1X ONCE PO 07/02/19 11:00 07/02/19 11:01 DC 07/02/19 11:16 JOSE ALVAREZ III DO Jul 02, 2019 12:47
--- NOTE | 2019-07-02 14:30 | NUR ---
SS following up with discharge planning. Script for oxygen received. [facility], , and received notification that they are out of network with [facility]. SS phoned and faxed script and referral to [facility], ; fax [phone]. [facility] confirmed receipt of referral. Oxygen tank provided to pt's RN for home.
[2019-07-02 15:00] VITALS: BP 107/58
[2019-07-02 16:34] VITALS: BP 107/58
--- NOTE | 2019-07-02 17:14 | NUR ---
Discharge Note: JN AGUILAR [address] [place] [address] Discharge instructions and discharge home medications reviewed with Patient and a copy given. All questions have been answered and understanding verbalized. The following instructions and handouts were given: Viral gastroenteritis and N/V Discontinued IV lines Patient discharged to home with self care via cab
--- NOTE | 2019-07-02 20:06 | DS ---
DATE OF DISCHARGE: 07/02/2019 ADMISSION DIAGNOSIS: Gastroenteritis and sepsis. DISCHARGE DIAGNOSES: 1. Resolving gastroenteritis. 2. Resolving sepsis. 3. Mild gastroparesis. HOSPITAL COURSE: The patient is a pleasant 54-year-old female who presented with sepsis and acute gastroenteritis with nausea, vomiting, and diarrhea. She was admitted. We consulted GI. She went for a gastric emptying study yesterday. It did show some slow gastric emptying. Today, when we saw her and examined, she was doing well. We discharged to home with close outpatient followup. DISPOSITION: Home. ACTIVITY: As tolerated. MEDICATIONS: Please see MRAD. TOTAL TIME: 31 minutes. JOSE ALVAREZ DO DR: ROSA/gabriel JOB#: [id number] / [id number]
== END 2019-07-02 18:16 | disposition home or self-care (01) | DRG 391 ==
LOC: ER 17:55 → 2 SOUTH 20:58
PROVIDERS: ADMIT Internal Medicine; ATTEND Internal Medicine
DX: K52.9 Noninfective gastroenteritis and colitis, unspecified (principal); N17.0 Acute kidney failure with tubular necrosis; Z68.42 Body mass index [BMI] 45.0-49.9, adult; I13.0 Hypertensive heart and chronic kidney disease with heart failure and stage 1 through stage 4 chronic kidney disease, or unspecified chronic kidney disease; K21.9 Gastro-esophageal reflux disease without esophagitis; F41.9 Anxiety disorder, unspecified; F31.9 Bipolar disorder, unspecified; I25.10 Atherosclerotic heart disease of native coronary artery without angina pectoris; I50.9 Heart failure, unspecified; M54.30 Sciatica, unspecified side; E66.01 Morbid (severe) obesity due to excess calories; M79.7 Fibromyalgia; N18.9 Chronic kidney disease, unspecified; J44.9 Chronic obstructive pulmonary disease, unspecified; M10.9 Gout, unspecified; K76.0 Fatty (change of) liver, not elsewhere classified; F17.210 Nicotine dependence, cigarettes, uncomplicated; K31.84 Gastroparesis; G25.81 Restless legs syndrome; I25.2 Old myocardial infarction; Z90.49 Acquired absence of other specified parts of digestive tract; Z90.710 Acquired absence of both cervix and uterus; Z82.49 Family history of ischemic heart disease and other diseases of the circulatory system; Z95.5 Presence of coronary angioplasty implant and graft; Z88.0 Allergy status to penicillin; Z88.8 Allergy status to other drugs, medicaments and biological substances
CPT/HCPCS: 36415; 74022; 78264; 80053; 80307; 81001; 83605; 83690; 85025; 85610; 87040; 94618; 96361; 96374; A9541; J0696; J0780; J2405; J2765; J7030; J8597; 99285-25; G0378

== ENCOUNTER 2019-08-27 06:58 | Emergency (ER) | payer MEDICARE, OTHER ==
[~2019-08-27] VITALS: Ht 170.2 cm; Wt 127.5 kg
[2019-08-27 06:58] VITALS: BP 115/62
[~2019-08-27 06:58] MED LIST changes: +ASCO500T3 PO; +CETI10TA16 PO; +CITA40TA5 PO; +FLUO20CA19 PO; -FLUO20CA8 PO; +FURO40TA4 PO; +KETO5DRO4 OD; +LAMO200T6 PO; +NITR0.4T22 SL; -OMEP20CA10 PO; +OMEP20CA16 PO; +VENTOLIN HFA18 GM INH; +ZOLP10TA4 PO
[2019-08-27] MEDS ORDERED: KETOROLAC 60 MG/2 ML VIAL. IM ONE (07:15)
[2019-08-27] MEDS ORDERED: ORPHENADRINE CITRATE 60 MG/2 ML VIAL. IM ONE (07:15)
[2019-08-27] MEDS ORDERED: DICL50TA4 PO (07:43)
[2019-08-27] MEDS ORDERED: TRAM50TA PO (07:43)
[2019-08-27] MEDS ORDERED: ORPH100T PO (07:43)
--- NOTE | 2019-08-27 07:43 | PHYS DOC ---
Past Medical History Past Medical History: CHF, Hypertension, MO Additional Past Medical Histor: obesity,seasonal allergies,drug seeking behavior neuropathy,ulcer Past Surgical History: Cholecystectomy, Hysterectomy, Tubal ligation Additional Past Surgical Histo: L knee surgery, cardiac stent, ESOPHAGUS SX Alcohol Use: None Drug Use: None Adult General Chief Complaint Chief Complaint: [facility] PA[facility] HPI Patient is a 54-year-old female who presents with complaint of lower back pain after lifting something last night and feeling something pop in her back. Patient states that since injury occurred, she has been feeling a lump on the left side of her lower back. She denies any chest pain or shortness breath. She states the pain radiates up her back and not down her back or into her legs. She denies any loss of bowel or bladder control. Patient rates pain as moderate. She states the pain is worsened with movement.[] Review of Systems Review of Systems Constitutional: Denies fever or chills [] Respiratory: Denies cough or shortness of breath [] Cardiovascular: No additional information not addressed in HPI [] : Denies dysuria or hematuria [] Musculoskeletal: Complains of lower back pain [] Integument: Denies rash or skin lesions [] Neurologic: Denies headache, focal weakness or sensory changes [] Current Medications Current Medications Current Medications Medications (Trade) Dose Ordered Sig/[facility] Start Time Stop Time Status Last Admin Dose Admin Ketorolac Tromethamine (Toradol Im) 60 mg 1X ONCE 08/27/19 07:15 08/27/19 07:16 DC 08/27/19 07:30 60 MG Orphenadrine Citrate (Norflex) 60 mg 1X ONCE 08/27/19 07:15 08/27/19 07:16 DC 08/27/19 07:30 60 MG Allergies Allergies Allergies Coded Allergies Type Severity Reaction Last Updated Verified Penicillins Allergy Intermediate HIVES 10/08/17 Yes clavulanic acid Allergy Intermediate Nausea 10/08/17 Yes duloxetine Allergy Intermediate Nausea and Vomiting 10/08/17 Yes amoxicillin Adverse Reaction Intermediate Nausea 10/08/17 Yes Physical Exam Physical Exam Constitutional: Well developed, well nourished, no acute distress, non-toxic appearance. [] Neck: Normal range of motion, no tenderness, supple, no stridor. [] Cardiovascular: Regular rate and rhythm[] Lungs & Thorax: Bilateral breath sounds clear to auscultation [] Skin: Warm, dry, no erythema, no rash. [] Back: There is tenderness to palpation with palpable spasm noted in the left lumbar paraspinal musculature. [] Neurologic: Alert and oriented X 3, no focal deficits noted. [] Current Patient Data Vital Signs Vital Signs Date Time Temp Pulse Resp B/P (MAP) Pulse Ox O2 Delivery O2 Flow Rate FiO2 08/27/19 06:58 97.5 69 15 115/62 (79) 91 Room Air 97.5 EKG EKG [] Radiology/Procedures Radiology/Procedures [] Course & Med Decision Making Course & Med Decision Making Pertinent Labs and Imaging studies reviewed. (See chart for details) [] Dragon Disclaimer Dragon Disclaimer This electronic medical record was generated, in whole or in part, using a voice recognition dictation system. Departure Departure Impression: Primary Impression: Lumbosacral strain Disposition: 01 HOME, SELF-CARE Condition: STABLE Referrals: NELLIE DIAZ (PCP) Patient Instructions: Lumbosacral Strain Scripts Tramadol Hcl (TRAMADOL HCL) 50 Mg Tablet 50 MG PO Q6HRS PRN for PAIN, #10 TAB Prov: ELSA MONDRAGON Jr. DO 08/27/19 Orphenadrine Citrate (ORPHENADRINE CITRATE) 100 Mg Tablet.er 1 TAB PO BID PRN for MUSCLE SPASMS, #14 TAB Prov: ELSA MONDRAGON Jr. DO 08/27/19 Diclofenac Sodium (DICLOFENAC SODIUM) 50 Mg Tablet.dr 1 TAB PO BID PRN for PAIN, #20 TAB Prov: ELSA MONDRAGON Jr. DO 08/27/19 Problem Qualifiers Primary Impression: Lumbosacral strain Encounter type: initial encounter Qualified Codes: S39.012A - Strain of muscle, fascia and tendon of lower back, initial encounter ELSA MONDRAGON Jr. DO Aug 27, 2019 07:43
--- NOTE | 2019-08-27 07:43 | RAD ---
LUMBAR SPINE 2-3V History: Injury to back yesterday, low back pain Comparison: October 09, 2017 Findings: 3 views of the lumbar spine are submitted. Lumbar vertebral body stature is overall maintained. AP alignment is maintained. No acute osseous abnormality is identified by radiographs. There is multilevel lumbar facet degenerative change greater inferiorly. There is mild degenerative disc disease greatest L3-4 and L4-5. There has been cholecystectomy. Impression: 1. No acute osseous abnormality is identified by radiographs. Electronically signed by: Hernando Feldman MD (08/27/2019 7:40 AM) [facility]
== END 2019-08-27 07:59 | disposition home or self-care (01) ==
LOC: ER 06:58
DX: S39.012A Strain of muscle, fascia and tendon of lower back, initial encounter (principal); I11.0 Hypertensive heart disease with heart failure; I50.9 Heart failure, unspecified; I25.2 Old myocardial infarction; Z76.5 Malingerer [conscious simulation]; Z90.710 Acquired absence of both cervix and uterus; Z98.51 Tubal ligation status; Z90.49 Acquired absence of other specified parts of digestive tract; E66.9 Obesity, unspecified; Z68.41 Body mass index [BMI] 40.0-44.9, adult; Z95.5 Presence of coronary angioplasty implant and graft; Z88.0 Allergy status to penicillin; Z88.1 Allergy status to other antibiotic agents; Z88.8 Allergy status to other drugs, medicaments and biological substances; X50.0XXA Overexertion from strenuous movement or load, initial encounter; Y93.89 Activity, other specified; Y92.89 Other specified places as the place of occurrence of the external cause; Y99.8 Other external cause status
CPT/HCPCS: 72100; 96372; 99284; J1885; J2360